=== PATIENT | female | born 1960 | race Caucasian/White ===

== ENCOUNTER → 2018-05-30 12:33 | Outpatient (CLI) | payer OTHER, SELFPAY ==
--- NOTE | 2018-05-30 12:41 | BI_ITS ---
MAMMOGRAPHY - BILATERAL SCREENING REASON FOR EXAM: Female, 57 years old. Routine annual screening examination. PERTINENT HISTORY: Mother with breast cancer. Remote left stereotactic breast biopsy. TECHNIQUE: Digital bilateral breast lizzie (3D mammographic acquisition) in the CC and MLO projections. 2-D mediolateral oblique (MLO) and craniocaudad (CC) views of both breasts were obtained. CAD: Full Field Digital Mammography with Computer Added Detection was performed. COMPARISON: Comparison is made with prior study dated November 19, 2014 and July 21, 2013. FINDINGS: Breast Composition: The breasts are almost entirely fatty. There are no dominant masses or suspicious calcifications. No other significant abnormalities are identified. There has been no significant change since the prior study. BI/SCREENING MAMM (CAD), BILAT IMPRESSION: Stable bilateral screening mammogram. Yearly follow-up mammogram recommended. (A) ASSESSMENT CATEGORY: BIRADS Category 1: Negative. A letter regarding these results will be sent to the patient by the facility within 30 days. Approximately 10% of breast cancers are not detected by mammography. A normal mammogram should not delay biopsy of a clinically suspicious abnormality. [id number] Electronically Signed: Robson Mullen MD at 14:11 EST Tel [phone], Service support ,
== END ==
PROVIDERS: Family Provider Family Medicine; PCP Family Medicine; Visit Provider Family Medicine
DX: Z12.31 Encounter for screening mammogram for malignant neoplasm of breast (principal); Z80.3 Family history of malignant neoplasm of breast
CPT/HCPCS: 77063; 77067

== ENCOUNTER → 2020-07-28 12:13 | Outpatient (CLI) | payer OTHER, SELFPAY ==
--- NOTE | 2020-07-28 12:14 | BI_ITS ---
MAMMOGRAPHY - BILATERAL SCREENING REASON FOR EXAM: Female, 59 years old. Routine annual screening examination. PERTINENT HISTORY: Mother with breast cancer. Remote left stereotactic breast biopsy. TECHNIQUE: Digital bilateral breast harper (3D mammographic acquisition) in the CC and MLO projections. 2-D mediolateral oblique (MLO) and craniocaudad (CC) views of both breasts were obtained. CAD: Full Field Digital Mammography with Computer Added Detection was performed. COMPARISON: Comparison is made with prior study dated 05/30/2018 and 11/19/2014. FINDINGS: Breast Composition: The breasts are almost entirely fatty. There are no dominant masses or suspicious calcifications. No other significant abnormalities are identified. There has been no significant change since the prior study. BI/SCRN MAMM (CAD)W/HARPER BILAT IMPRESSION: Stable bilateral screening mammogram. Yearly follow-up mammogram recommended. (A) ASSESSMENT CATEGORY: BIRADS Category 1: Negative. A letter regarding these results will be sent to the patient by the facility within 30 days. Approximately 10% of breast cancers are not detected by mammography. A normal mammogram should not delay biopsy of a clinically suspicious abnormality. [id number] Electronically Signed: Robson Mullen MD at 11:16 EDT , Service support ,
== END ==
PROVIDERS: PCP Family Medicine; Referring Provider Obstetrics & Gynecology Gynecology; Visit Provider Obstetrics & Gynecology Gynecology
DX: Z01.419 Encounter for gynecological examination (general) (routine) without abnormal findings (principal); Z12.31 Encounter for screening mammogram for malignant neoplasm of breast; Z80.3 Family history of malignant neoplasm of breast; Z80.41 Family history of malignant neoplasm of ovary
CPT/HCPCS: 77063; 77067

== ENCOUNTER 2022-02-09 12:50 | Day surgery (SDC) | payer OTHER, SELFPAY ==
[2022-02-09] VITALS (8 sets, daily range): BP systolic 87–117; BP diastolic 59–79; PULSE 68–78; RESP 16–18; TEMP 36.1–36.6; O2SAT 90–97; BMI 34.4
[2022-02-09] MEDS: Lactated Ringers 1,000 ML 15 ML IV (13:20)
[2022-02-09 14:05] LABS: Bedside Glucose 111 mg/dL (74-106)
[2022-02-09] MEDS: Cefazolin 2 GM in 0.9% Normal Saline 100 ML IV (15:01)
[2022-02-09] MEDS: Lidocaine 1% /Epi 1:100 (20ml) 20 ML Vial (15:13)
--- NOTE | 2022-02-09 15:44 | DCINST_ITS ---
Discharge Instructions Follow Up Care Test Results: Test results from this visit will be discussed in further detail at your follow- up appointment, if applicable. Discharge Plan Admission Primary Reason for Your Visit: Right long finger incision and drainage Attending Provider: William Jack Primary Care Provider: Teresa Villanueva Instructions Additional Instructions / Restrictions: Follow preprinted instructions from your surgeons office. Discharge Orders/Prescriptions Prescriptions: New oxycodone 5 mg tablet 5 mg PO Q6H PRN (Reason: pain) 7 Days Qty: 28 0RF Continued celecoxib 200 mg capsule 200 mg PO DAILY Label Comments: take 1 capsule by mouth once daily metformin 500 mg Tablet 1,000 mg PO BID doxycycline hyclate 100 mg capsule 100 mg PO DAILY Label Comments: take 1 capsule by mouth twice a day if needed for ROSACEA FLARES albuterol sulfate 1.25 mg/3 mL Solution For Nebulization 1.25 mg INHALATION Q4H sumatriptan succinate [Imitrex] 100 mg Tablet 100 mg PO Q2H PRN (Reason: Headache) Rx Instructions: do not exceed 2 doses per 24 hrs propranolol 60 mg tablet 60 mg PO BID Label Comments: take 1 tablet by mouth twice a day amitriptyline 50 mg tablet 50 mg PO QHS Label Comments: take 1 tablet by mouth at bedtime pantoprazole [Protonix] 40 mg Tablet,Delayed Release (Dr/Ec) 40 mg PO DAILY simvastatin 20 mg Tablet 20 mg PO DAILY lisinopril 5 mg Tablet 5 mg PO DAILY amoxicillin-pot clavulanate 875-125 mg tablet 1 tab PO BID Label Comments: take 1 tablet by mouth every 12 hours for 14 days escitalopram oxalate 10 mg tablet 10 mg PO DAILY Label Comments: take 1 tablet by mouth once daily omega-3 fatty acids-vitamin E 1,000 mg Capsule 2 cap PO DAILY cholecalciferol (vitamin D3) 1,250 mcg (50,000 unit) capsule 1,250 mcg PO FR Label Comments: take 1 capsule by mouth every week Jardiance 25 mg Tablet 25 mg PO DAILY Combivent Respimat 20-100 mcg/actuation Mist 1 puff INHALATION Q4H Referrals / Follow Up: Teresa Villanueva DO [Primary Care Provider] - Disposition Disposition (needs filled in before D/C Order can be placed): Home, Self Care
--- NOTE | 2022-02-09 15:44 | PCM.OPRPT ---
Report of Operation Date of Procedure: 02/09/22 Description of Surgical Findings:: Preoperative diagnosis: Right long finger paronychia with questionable developing felon Postoperative diagnosis: Right long finger paronychia Procedure: Incision and drainage right long finger paronychia Surgeon: William Jack DO Senior Sales Engineer: Desire Schmitz PA-C Anesthesia: MAC with digital ring block Anesthesiologist: Dr. Souza Estimated blood loss: 2 cc Intraoperative findings: Paronychia abscess with purulent fluid expressed following ulnar-sided paronychia incision. No purulence expressed from finger pulp. Specimen: Aerobic and anaerobic cultures Packing: Iodoform packing approximately 4 cm ulnar side paronychia Preoperative indications: This is a 61-year-old female past medical history significant for diabetes mellitus type 2 including other comorbidities who was seen in the outpatient setting as an urgent referral from her primary care physician for a paronychia. Patient reported a hangnail that had expressible pus approximately 1 month ago. This resolved with oral antibiotics and soaks. This returned approximately 1 week ago. She was seen at her primary care office. Bedside. Incision and drainage was attempted but was unsuccessful in resolving her pain and swelling. I saw the patient in the outpatient setting. She had findings consistent with a paronychia. There was some concern of a developing felon, however her finger pad was soft and compressible when I saw her in the office. There was surrounding erythema noted. I recommended formal incision and drainage in the operative suite. The risks, benefits, alternatives to procedure reviewed with the patient at length and she agreed to proceed. Risk included but were not limited to bleeding, flexion, loss of life or limb, need for additional surgery, persistent pain, persistent infection, neurovascular injury, loss of function, nail deformities, nonhealing wounds. Patient expressed understanding these risks and wished proceed with surgery. Informed consent obtained in the outpatient setting. Description of procedure: Patient was identified the preoperative order by name, medical record number, and date of . The operative extremity was marked. All questions are answered to the patient satisfaction. Informed percent was confirmed. She again did not have classic felon but there was significant palmar sided swelling noted. At time of her procedure, patient was brought the operative suite positioned supine a standard operating table. MAC anesthesia was induced. All bony prominences were well-padded. We spun the bed 90 degrees. No tourniquet was applied. Prior to prepping, I administered a digital nerve block with 10 cc 1% lidocaine with epinephrine 1: 200,000. We then prepped and draped the right upper extremity in normal, sterile orthopedic fashion. We performed timeout with all parties in attendance agreement the side, site, operation be performed. No concerns were voiced and would like to proceed with surgery. I first confirmed anesthesia with a Adson forceps. I then utilized a 15 blade to make a small incision along the ulnar paronychia. Purulence was immediately encountered and cultures were taken. I then opened the incision slightly wider encompassing the majority of the ulnar-sided paronychia. Hemostat was then placed within the abscess cavity and spread to confirm no residual loculations. I then passed the hemostat bluntly through the finger pad pulp. No purulence was expressed. There was significant reduction in the swelling of the fingertip immediately noted after the purulent fluid was drained from the eponychium. I then introduced a 18-gauge angiocatheter into the abscess cavity. Copious normal saline was irrigated through. There is no residual purulence noted. I then packed the abscess cavity with approximately 4 cm of iodoform packing. A bulky sterile dressing was then applied to the finger. She was safely awoken in the operative suite after anesthesia was reversed and she was transferred to her gurney and subsequently to PACU in stable condition. Postoperative plan: Patient be nonweightbearing to the operative digit. Patient will pull packing at home tomorrow and begin twice daily soap water soaks. Ice and elevation. Prescription for oxycodone provided. Continue doxycycline and amoxicillin as prescribed by her primary care physician pending cultures. We will follow cultures closely. Follow-up within 1 week for recheck with myself. Written instructions provided.
--- NOTE | 2022-02-09 16:01 | DCINST_ITS ---
Discharge Instructions Follow Up Care Test Results: Test results from this visit will be discussed in further detail at your follow- up appointment, if applicable. Discharge Plan Admission Primary Reason for Your Visit: Right long finger incision and drainage Attending Provider: William Jack Primary Care Provider: Teresa Villanueva Instructions Additional Instructions / Restrictions: Okay to remove dressing on postoperative day #1, 02/10/2022. Pull iodoform packing from the wound. After removing packing, performed 10-minute soap water soaks using a gentle dish soap. Okay to leave open to air if no significant drainage, otherwise cover with gauze dressing. Continue twice daily 10-minute soap water soaks until follow-up with Dr. Jack in 1 week. Continue home antibiotics. Okay to shower after pulling packing. No driving while taking narcotics. Discharge Orders/Prescriptions Prescriptions: New oxycodone 5 mg tablet 5 mg PO Q6H PRN (Reason: pain) 7 Days Qty: 28 0RF Continued celecoxib 200 mg capsule 200 mg PO DAILY Label Comments: take 1 capsule by mouth once daily metformin 500 mg Tablet 1,000 mg PO BID doxycycline hyclate 100 mg capsule 100 mg PO DAILY Label Comments: take 1 capsule by mouth twice a day if needed for ROSACEA FLARES albuterol sulfate 1.25 mg/3 mL Solution For Nebulization 1.25 mg INHALATION Q4H sumatriptan succinate [Imitrex] 100 mg Tablet 100 mg PO Q2H PRN (Reason: Headache) Rx Instructions: do not exceed 2 doses per 24 hrs propranolol 60 mg tablet 60 mg PO BID Label Comments: take 1 tablet by mouth twice a day amitriptyline 50 mg tablet 50 mg PO QHS Label Comments: take 1 tablet by mouth at bedtime pantoprazole [Protonix] 40 mg Tablet,Delayed Release (Dr/Ec) 40 mg PO DAILY simvastatin 20 mg Tablet 20 mg PO DAILY lisinopril 5 mg Tablet 5 mg PO DAILY amoxicillin-pot clavulanate 875-125 mg tablet 1 tab PO BID Label Comments: take 1 tablet by mouth every 12 hours for 14 days escitalopram oxalate 10 mg tablet 10 mg PO DAILY Label Comments: take 1 tablet by mouth once daily omega-3 fatty acids-vitamin E 1,000 mg Capsule 2 cap PO DAILY cholecalciferol (vitamin D3) 1,250 mcg (50,000 unit) capsule 1,250 mcg PO FR Label Comments: take 1 capsule by mouth every week Jardiance 25 mg Tablet 25 mg PO DAILY Combivent Respimat 20-100 mcg/actuation Mist 1 puff INHALATION Q4H Referrals / Follow Up: Teresa Villanueva DO [Primary Care Provider] - Disposition Disposition (needs filled in before D/C Order can be placed): Home, Self Care
== END 2022-02-09 16:48 | disposition home or self-care (01) ==
LOC: SDC 12:52 → AC 12:54
PROVIDERS: PCP Family Medicine; Referring Provider Student in an Organized Health Care Education/Training Program; Visit Provider Student in an Organized Health Care Education/Training Program
PROC: (CPT 10061; principal; 2022-02-09 14:25)
DX: L03.011 Cellulitis of right finger (principal); J44.9 Chronic obstructive pulmonary disease, unspecified; E11.9 Type 2 diabetes mellitus without complications; I10 Essential (primary) hypertension; E78.00 Pure hypercholesterolemia, unspecified; E66.8 Other obesity; K21.9 Gastro-esophageal reflux disease without esophagitis; M19.90 Unspecified osteoarthritis, unspecified site; F41.9 Anxiety disorder, unspecified; F17.210 Nicotine dependence, cigarettes, uncomplicated; Z68.35 Body mass index [BMI] 35.0-35.9, adult; Z71.3 Dietary counseling and surveillance; Z79.84 Long term (current) use of oral hypoglycemic drugs; Z79.899 Other long term (current) drug therapy
CPT/HCPCS: 10061; 00400; 82962; 87070; 87075; 87077; 87186; 87205; J7120; J2405

== ENCOUNTER 2022-04-05 09:38 | Day surgery (SDC) | payer OTHER, SELFPAY ==
--- NOTE | 2022-03-27 08:52 | EKG12_ITS ---
Test Reason : PRE OP Blood Pressure : / mmHG Vent. Rate : 074 BPM Atrial Rate : 074 BPM P-R Int : 146 ms QRS Dur : 086 ms QT Int : 398 ms P-R-T Axes : 068 084 077 degrees QTc Int : 441 ms Normal sinus rhythm Low voltage QRS Borderline ECG Confirmed by AIDEN SLAUGHTER, JAYLYN ([id number]), online editor ASHWIN SCHREIBER ([id number]) on 03/28/2022 8:51:31 AM Referred By: MOISES Confirmed By:JAYLYN WOLFE MD
[2022-03-27 09:30] LABS: Absolute Lymphocyte Count 3.17 X10^3/uL (0.83-4.51); Absolute Neutrophil Count 5.7 X10^3/uL (2.0-7.7); Eosinophil# 0.63 X10^3/uL; Eosinophils% 6.2 % (0-5); Hemoglobin 18.5 g/dL (12.0-15.0); Lymphocyte # 3.17 X10^3/ul (0.83-4.51); Lymphocyte % 31.4 % (19-41); Mean Corp Hgb Conc 33.3 g/dL (32-36); Mean Corpuscular Hgb 31.8 pg (27.0-32.0); Mean Corpuscular Volume 95.7 fL (81-99); Mean Platelet Vol. 9.2 fl (6.2-12.0); Monocyte# 0.48 X10^3/uL; Monocyte% 4.8 % (0-10); NRBC Flagged by Analyzer 0 % (0-5); Neutrophil # 5.67 X10^3/uL (2.7-7.7); Neutrophil % 56.2 % (47-70); Platelet Count 306 K/mm3 (150-450); RBC Distribution Width CV 13.9 % (11.6-14.6); RBC Distribution Width SD 48.6 fl (35.1-43.9); Red Blood Count 5.81 M/mm3 (4.2-5.4); White Blood Count 10.1 K/mm3 (4.4-11.0)
[2022-03-27 09:35] LABS: Hematocrit 55.6 % (37-47)
[2022-03-27 09:54] LABS: Hemoglobin A1c 6.7 % (3.8-5.6)
[2022-03-27 10:05] LABS: Anion Gap 6 (5-15); BUN 16 mg/dL (7-18); BUN/Creat Ratio 18.6 RATIO (10-20); Calcium,Total 9.9 mg/dL (8.5-10.1); Chloride 105 mmol/L (98-107); Creatinine, Serum 0.86 mg/dL (0.55-1.02); EST Glomerular Filtration Rate 72 mL/min (>60); Est Glom Filt Rate - Afr Amer 87 mL/min (>60); Glucose 152 mg/dL (74-106); Potassium 4.5 mmol/L (3.5-5.1); Sodium Level 136 mmol/L (136-145)
[2022-03-27 12:26] LABS: Pathologist Review Reviewed
[2022-04-05] VITALS (10 sets, daily range): BP systolic 84–111; BP diastolic 63–85; PULSE 73–84; RESP 16–22; TEMP 36.2–37.1; O2SAT 91–96; BMI 34.4
[2022-04-05 10:35] LABS: Bedside Glucose 143 mg/dL (74-106)
[2022-04-05] MEDS: Lactated Ringers 1,000 ML 15 ML IV ×2 (10:54→14:15)
[2022-04-05] MEDS: Ipratropium/Albuterol Sulfate 3 ML AMPUL.NEB INHALATION (11:11)
[2022-04-05] MEDS: Cefazolin 2 GM in 0.9% Normal Saline 100 ML IV (11:45)
[2022-04-05] MEDS: Epinephrine (1 mg/ml) 1 MG/ML VIAL (12:10)
[2022-04-05] MEDS: Bupivacaine 0.25% 30 ML Vial ×2 (14:00)
[2022-04-05 15:05] LABS: Bedside Glucose 177 mg/dL (74-106)
[2022-04-05] MEDS: oxyCODONE 5 MG Tablet 10 MG PO (15:30)
--- NOTE | 2022-04-05 16:43 | DCINST_ITS ---
Discharge Instructions Follow Up Care Test Results: Test results from this visit will be discussed in further detail at your follow- up appointment, if applicable. Discharge Plan Admission Primary Reason for Your Visit: Right shoulder surgery Attending Provider: William Jack Primary Care Provider: Teresa Villanueva Instructions Additional Instructions / Restrictions: Follow preprinted instructions from your surgeons office. Discharge Orders/Prescriptions Prescriptions: No Action celecoxib 200 mg capsule 200 mg PO DAILY Label Comments: take 1 capsule by mouth once daily metformin 500 mg Tablet 1,000 mg PO BID doxycycline hyclate 100 mg capsule 100 mg PO PRN PRN (Reason: ROSECA) Label Comments: take 1 capsule by mouth twice a day if needed for ROSACEA FLARES albuterol sulfate 1.25 mg/3 mL Solution For Nebulization 1.25 mg INHALATION PRN PRN (Reason: SOB) sumatriptan succinate [Imitrex] 100 mg Tablet 100 mg PO Q2H PRN (Reason: Headache) Rx Instructions: do not exceed 2 doses per 24 hrs propranolol 60 mg tablet 60 mg PO BID Label Comments: take 1 tablet by mouth twice a day amitriptyline 50 mg tablet 50 mg PO QHS Label Comments: take 1 tablet by mouth at bedtime pantoprazole [Protonix] 40 mg Tablet,Delayed Release (Dr/Ec) 40 mg PO DAILY simvastatin 20 mg Tablet 20 mg PO DAILY lisinopril 5 mg Tablet 5 mg PO DAILY escitalopram oxalate 10 mg tablet 10 mg PO DAILY Label Comments: take 1 tablet by mouth once daily omega-3 fatty acids-vitamin E 1,000 mg Capsule 2 cap PO DAILY cholecalciferol (vitamin D3) 1,250 mcg (50,000 unit) capsule 1,250 mcg PO FR Label Comments: take 1 capsule by mouth every week Jardiance 25 mg Tablet 25 mg PO DAILY Combivent Respimat 20-100 mcg/actuation Mist 1 puff INHALATION PRN PRN (Reason: SOB) Referrals / Follow Up: Teresa Villanueva DO [Primary Care Provider] - William Jack DO [Med Staff - Active Staff] - Within 2 Weeks Disposition Disposition (needs filled in before D/C Order can be placed): Home, Self Care
--- NOTE | 2022-04-05 17:08 | OP.PCM_ITS ---
Report of Operation Date of Procedure: 04/05/22 Description of Surgical Findings:: Preoperative diagnosis: 1. Right shoulder rotator cuff tear 2. 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 Right shoulder rotator cuff tear 2. 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 Diagnostic and operative right shoulder arthroscopy with rotator cuff repair 2. Right shoulder mini open distal clavicle excision 3. Right shoulder arthroscopic debridement of labrum, capsular synovitis, subacromial bursitis 4. Right shoulder arthroscopic ganglion cyst excision Primary Surgeon: William Jack DO Automatic Grinder Operator: Desire Schmitz PA-C Anesthesia: General endotracheal Anesthesiologist: Omero De La Rosa MD Complications: None apparent Specimen: None Estimated blood loss: 50 cc IV fluids: 1 L crystalloid Urine output: None Packing/drains: None Implants: Arthrex 5.5 mm bio composite swivel lock anchor Intraoperative findings: Full-thickness tear of the supraspinatus leading edge, subacromial bursitis, 2 x 2 x 2 cm ganglion cyst arising from the distal clavicle, severe AC joint arthrosis, glenohumeral synovitis, grade 4 humeral head chondromalacia Preoperative indications: This is a 61-year-old female seen in outpatient setting for right shoulder pain. She had a palpable cyst along her AC joint. She saw a general surgeon in approximately 6 months ago who attempted to excise the cyst but was unsuccessful. I obtained an MRI which demonstrated the cyst was arising from the distal clavicle. We also found a leading edge supraspinatus tendon tear. She did have significant weakness in the supraspinat us. I recommended surgical intervention in the form of right shoulder diagnostic and operative arthroscopy with rotator cuff repair, distal clavicle excision and excision of the ganglion cyst. I reviewed the risks, benefits, alternatives to the procedure. Risks included but were not limited to bleeding, infection, loss of life or limb, nonhealing tendon, persistent pain, persistent weakness, stiffness, need for prolonged immobilization, prolonged therapy, DVT or PE, risk of anesthesia, neurovascular injury, need for additional surgery. Patient expressed understanding these risks and wished to proceed with surgery. Description of procedure: Patient was identified in the preoperative holding area by name, medical record number, and date of . Informed consent was confirmed with the patient. The operative extremity was marked with a surgical marker. All questions were answered to the patient's satisfaction. At time of her procedure, patient was brought to the operative suite and positioned supine a standard operating table with a beachchair attachment. All bony prominences were well-padded. General anesthesia was induced and endotracheal tube placed. After the tube was secured, we elevated the head of the bed to position the patient into the beachchair position. A pillow was placed on the patient's legs. All bony prominences were well-padded. The nonoperative extremity was placed in a well arm rutherford. A strap was placed across the patient's torso and the butterfly attachment of the bed was removed to gain access to the posterior scapula. We then spun the bed approximately 45 degrees. We then prepped and draped the operative upper extremity in a normal, sterile orthopedic fashion. We performed a timeout with all parties in attendance in agreement with the side, site, and operation be performed. No concerns were voiced and we elected to proceed. 2 g Ancef was administered prior to the incision by anesthesia staff. I first outlined the bony landmarks of the shoulder. I established a standard posterior portal with an 11 blade scalpel. Blunt tipped trocar in cannula was inserted into the glenohumeral joint. The joint was insufflated with normal saline solution with epinephrine in the first 2 bags. Trocar was removed and diagnostic arthroscopy was commenced. There was significant synovitis and degenerative tearing of both the supraspinatus and labrum easily identifiable initially. I established a standard anterior portal with the assistance of a spinal needle under direct visualization just superior to the upper border of the subscapularis. Probing of the subscapularis as well as a posterior lever test revealed that the subscapularis appeared to be intact. The long of the biceps tendon was pristine. The biceps anchor was stable. There was degenerative tearing of the glenoid labrum which appeared to be impinging in the glenohumeral joint. This was debrided with a radial resector. The undersurface of the supraspinatus tear appeared to be full-thickness but I did tagged this with a #0 PDS suture for bursal side examination. Grade IV chondromalacia was noted of the humeral head without unstable flaps. There is extensive synovitis of the glenohumeral capsule which was debrided with a radiofrequency ablator and shaver. I then withdrew the arthroscope and cannula, reintroduced the blunt tipped trocar to the cannula and inserted into the subacromial space. I established a standard lateral portal with the assistance of a spinal needle and subsequent 11 blade scalpel. The radial resector was then introduced through the lateral portal and a subacromial bursectomy was performed as there was extensive bursitis in the subacromial space. There is a cystic structure identified which was debrided with the radial resector. The undersurface of the acromion was skeletonized with the radiofrequency ablator as well as peeling off the undersurface and attachment of the coracoacromial ligament. The acromion was without significant spurring. The acromioclavicular joint capsule was then identified and the inferior portion was released with the radiofrequency ablator. I then turned our attention to the supraspinatus tear. Identified the tagging suture and upon probing of the supraspinatus identified a full-thickness tear measuring approximately 1 cm in anterior to posterior dimensions. I freed the underlying capsular tissue. I then proceeded with a simple inverted mattress suture configuration with a fiber tape suture utilizing a antegrade suture passer. Suture ends were then placed through the eyelet of a 5.5 mm bio composite swivel lock anchor. I cleared the surface of the footprint and decorticated with the bone cutting radial resector. I then tensioned the sutures and placed the anchor through the airplane pilot commercial hole established with the vendor supplied punch. The rotator cuff was retensioned well without significant dogears. Sutures were cut flush with the anchor. I then turned my attention to the distal clavicle. Due to question of remaining cyst, I elected to proceed with a mini open distal clavicle excision. A longitudinal incision was made over top of the AC joint. Full-thickness skin flaps were developed down to the level of the superior joint capsule. I elevated the joint capsule with Bovie cautery. Approximately 8 mm of the distal clavicle was then excised with a 5.5 mm arthroscopic bur and rongeur. I then closed the superior capsule with 0 Vicryl suture in [id number] fashion. No remaining cyst material was identified. The subacromial space was then thoroug hly lavaged. Portal sites were closed in interrupted [id number] fashion with 4-0 nylon suture. I closed the distal clavicle excision in layers with 0 Vicryl in the deep fatty layer in [id number] fashion. Dermis was reapproximated buried 2-0 Vicryl suture. Skin was finally reapproximated with a horizontal mattress 4-0 nylon suture. I anesthetized the incisions, subacromial space and glenohumeral joint with 60 cc total of 0.25% plain bupivacaine. Sterile compression dressing was applied. Patient was then placed in UltraSling. She was able to be safely extubated in the operative suite. He was transferred to his gurney and subsequently to PACU in stable condition. Need for skilled orthodontic assistant: Desire Schmitz PA-C was critical to the outcome of the case. During the course of the procedure the physician orthodontic assistant played a vital role. Her intimate knowledge of my steps in the procedure aided in safe and expedient completion of the procedure. The PA played a vital role in pos itioning particularly in obtaining the appropriate positioning. The PA was also vital in the retraction of soft tissues during the exposure and protecting vital structures. The PA was also vital and obtaining tendon reduction and assisting with hardware placement. She also played a vital role in closure and sling application with my direct supervision. Postoperative plan: Patient will be nonweightbearing to the operative extremity. She should maintain his sling at all times removing only to shower. She may shower on postoperative day #2 if no significant drainage. She will follow up in a pproximately 2 weeks for suture removal. We will plan to initiate twice daily 81 mg aspirin for DVT prophylaxis starting tomorrow. Prescription for oxycodone was provided as an outpatient.
== END 2022-04-05 16:34 | disposition home or self-care (01) ==
LOC: SDC 09:40 → AC 09:41
PROVIDERS: PCP Family Medicine; Visit Provider Student in an Organized Health Care Education/Training Program
PROC: (CPT 29827; principal; 2022-04-05 11:10)
DX: M19.011 Primary osteoarthritis, right shoulder (principal); J44.9 Chronic obstructive pulmonary disease, unspecified; E11.9 Type 2 diabetes mellitus without complications; M75.101 Unspecified rotator cuff tear or rupture of right shoulder, not specified as traumatic; M75.121 Complete rotator cuff tear or rupture of right shoulder, not specified as traumatic; M67.40 Ganglion, unspecified site; F17.210 Nicotine dependence, cigarettes, uncomplicated; E78.00 Pure hypercholesterolemia, unspecified; K57.30 Diverticulosis of large intestine without perforation or abscess without bleeding
CPT/HCPCS: 23410; 23120; 29806; 29822; 01610; 36415; 80048; 82962; 83036; 85025; 87081; 93005; 94640; 99251; C1776; J7120; G0463; J2405

== ENCOUNTER → 2022-08-02 | Outpatient (CLI) | payer OTHER, SELFPAY ==
--- NOTE | 2022-08-02 12:52 | BI_ITS ---
MAMMOGRAPHY - BILATERAL SCREENING 3-D TOMOSYNTHESIS REASON FOR EXAM: Female, 61 years old. Routine screening PERTINENT HISTORY: Mother with breast cancer.. TECHNIQUE: 2-D mammograms and 3-D Tomosynthesis of the breast (s) were performed. CAD was performed. COMPARISON: 05/30/2018 FINDINGS: The breast composition is almost entirely fat. Scattered benign calcifications are seen. No dense spiculated masses or suspicious microcalcifications are identified. No architectural distortion is identified. There is no skin thickening or retraction. There has been no significant change since the prior study. BI/SCRN MAMM (CAD)W/HARPER BILAT IMPRESSION: No mammographic signs of malignancy. Routine yearly mammograms recommended. ASSESSMENT CATEGORY: BIRADS Category 1: Negative. A letter regarding these results will be sent to the patient by the facility within 30 days. FOLLOW UP RECOMMENDATION: Yearly follow up mammogram recommended. (A) Approximately 10% of breast cancers are not detected by mammography. A normal mammogram should not delay biopsy of a clinically suspicious abnormality. Electronically Signed: Clayton Hogue MD at 14:04 EDT ,
== END | disposition home or self-care (01) ==
LOC: OPBI 12:50
PROVIDERS: PCP Family Medicine; Referring Provider Family Medicine; Visit Provider Family Medicine
DX: Z12.31 Encounter for screening mammogram for malignant neoplasm of breast (principal)
CPT/HCPCS: 77063; 77067

== ENCOUNTER 2023-07-12 08:06 | Day surgery (SDC) | payer OTHER, SELFPAY ==
[2023-07-04 12:32] LABS: Hemoglobin 18.5 g/dL (12.0-15.0); Mean Corp Hgb Conc 32.2 g/dL (32-36); Mean Corpuscular Hgb 30.6 pg (27.0-32.0); Mean Platelet Vol. 10.3 fl (6.2-12.0); Platelet Count 295 K/mm3 (150-450); RBC Distribution Width CV 13.9 % (11.6-14.6); RBC Distribution Width SD 48.2 fl (35.1-43.9); Red Blood Count 6.05 M/mm3 (4.2-5.4); White Blood Count 10.2 K/mm3 (4.4-11.0)
[2023-07-04 12:46] LABS: Hematocrit 57.5 % (37-47)
[2023-07-04 12:49] LABS: Anion Gap 7 (5-15); BUN 15 mg/dL (7-18); BUN/Creat Ratio 18.9 RATIO (10-20); Calcium,Total 9.3 mg/dL (8.5-10.1); Chloride 109 mmol/L (98-107); Creatinine, Serum 0.79 mg/dL (0.55-1.02); EST Glomerular Filtration Rate 78 mL/min (>60); Est Glom Filt Rate - Afr Amer 94 mL/min (>60); Glucose 124 mg/dL (74-106); Potassium 4.3 mmol/L (3.5-5.1); Sodium Level 140 mmol/L (136-145)
[2023-07-05 12:57] LABS: Pathologist Review Reviewed
[2023-07-12] VITALS (8 sets, daily range): BP systolic 98–127; BP diastolic 77–93; PULSE 80–110; RESP 16–18; TEMP 36.3–37.1; O2SAT 94–97; BMI 35.8
--- OUTSIDE RECORDS SUMMARY | 2023-07-12 08:28 | XMS RPT_ITS | CCD ---
Author Name Unknown Address [address] [facility] [facility] [address] [place] [address] Organization [facility] Care Team Providers Care Assistant Store Leader Name Role Phone JASON SANABRIA DO Primary Care Physician [phone] DANIELE DO, JASON Attending Unavailable DANIELE DO, JASON Primary Care Unavailable DANIELE DO, JASON Attending Unavailable DANIELE DO, JASON Primary Care Unavailable DANIELE DO, JASON Attending Unavailable DANIELE DO, JASON Primary Care Unavailable DANIELE DO, JASON Attending Unavailable DANIELE DO, JASON Primary Care Unavailable DANIELE DO, JASON Attending Unavailable DANIELE DO, JASON Primary Care Unavailable DANIELE DO, JASON Attending Unavailable DANIELE DO, JASON Primary Care Unavailable DANIELE DO, JASON Attending Unavailable DANIELE DO, JASON Primary Care Unavailable DANIELE DO, JASON Attending Unavailable DANIELE DO, JASON Primary Care Unavailable DANIELE DO, JASON Attending Unavailable DANIELE DO, JASON Primary Care Unavailable TOMAS SURESH MD Attending Unavailable DANIELE DO, JASON Primary Care Unavailable DANIELE DO, JASON Attending Unavailable DANIELE DO, JASON Primary Care Unavailable KRISTIE KOCH Attending Unavailabl e DANIELE DO, JASON Primary Care Unavailable Allergies Allergy Classification Reported Allergen(s) Allergy Type Date of Onset Reaction(s) Facility (20 sources) Erythromycin; Translations: [erythromycin] Drug Allergy Chest pain [facility] (20 sources) Macrolides (Antibiotic); Translations: [macrolide antibiotics] Drug allergy [facility] (20 sources) Nitroglycerin; Translations: [nitroglycerin] Drug Allergy Headache [facility] Medications Current Medications Medication Drug Class(es) Dates Sig (Normalized) Sig (Original) 0.5 ML semaglutide 0.5 MG/ML Auto-Injector (2 sources) Start: 01-31-2022 inject 1 dose by subcutaneous injection every week semaglutide 0.25 mg/0.5 mL (0.25 mg dose) subcutaneous solution Dose : 0.25 mg =, Subcutaneous, qWeek, in the abdomen, thigh, or upper arm Corrected RX, # 6 mL, 3 Refill(s), Diabetes mellitus Start Date: 01/31/22 Status: Ordered albuterol 0.83 mg/ml inhalation solution (20 sources) beta2-Adrenergic Agonist Start: 12-27-2022 take 1 dose by inhalation every six hours albuterol 2.5 mg/3 mL (0.083%) inhalation solution Dose : 2.5 mg = 3 mL, Inhalation, q6hr, # 60 EA, 2 Refill(s), Pharmacy: [facility] #[id number], COPD - Chronic obstructive pulmonary disease, 175, cm, 12/27/22 8:35:00 EDT, Height, kg, 12/27/22 8:35:00 EDT, Dosing Weight Start Date: 12/27/22 Status: Ordered Completed/Discontinued Medications Medication Drug Class(es) Dates Sig (Normalized) Sig (Original) 0.5 ml dulaglutide 1.5 mg/ml auto-injector (1 source) GLP-1 Receptor Agonist Start: 12-27-2022 inject 0.5 mL by subcutaneous injection every week Trulicity Pen 0.75 mg/0.5 mL subcutaneous solution Dose : 0.75 mg = 0.5 mL, Subcutaneous, qWeek, rotate injection sites, # 2 mL, 1 Refill(s), 0.5 mL/Pen, Pharmacy: [facility] #[id number], Diabetes mellitus, 175, cm, 12/27/22 8:35:00 EDT, Height, kg, 12/27/22 8:35:00 EDT, Dosing Weight Start Date: 12/27/22 Status: Ordered metroNIDAZOLE 0.01 mg/mg topical gel (20 sources) Nitroimidazole Antimicrobial Start: 07-26-2022 End: 11-23-2022 MetroGel 1% topical gel Apply 1 maando, Topical, qDay, apply a thin film to affected area after washing when she has a rosacea flare up, # 60 gram(s), 3 Refill(s), Pharmacy: [facility] #[id number], Gel, 174, cm, 07/26/22 10:27:00 EST, Height, 108.3, kg, 07/26/22 10:27:00 EST, Dosing Weight Start Date: 07/26/22 Stop Date: 11/23/22 Status: Ordered Problems Active Problems Problem Classification Problem Date Documented Date Episodic/Chronic Anxiety disorders (20 sources) Anxiety 12-21-2013 Chronic Chronic obstructive pulmonary disease and bronchiectasis (20 sources) Chronic obstructive lung disease 12-24-2019 Chronic Diabetes mellitus with complications (6 sources) Hyperglycemia due to type 2 diabetes mellitus; Translations: [Type 2 diabetes mellitus with hyperglycemia] 01-25-2023 Chronic Diabetes mellitus without complication (20 sources) Diabetes mellitus; Translations: [Type 1 diabetes mellitus without complication] Onset: 3 12-26-2018 Chronic Disorders of lipid metabolism (20 sources) Hypercholesterolemia 12-26-2018 Chronic Diverticulosis and diverticulitis (20 sources) Diverticulitis 07-20-2020 Chronic Esophageal disorders (20 sources) Gastroesophageal reflux disease without esophagitis 06-27-2019 Chronic Essential hypertension (20 sources) Benign essential hypertension; Translations: [Essential hypertension] Onset: 2 12-19-2018 Chronic Fever of unknown origin (15 sources) Fever 03-09-2021 Episodic Genitourinary symptoms and ill-defined conditions (6 sources) Incontinence; Translations: [Mixed incontinence] Onset: 3 10-24-2022 Chronic Headache; including migraine (20 sources) Migraine; Translations: [Migraine, unspecified, not intractable, without status migrainosus] Onset: 2 12-21-2013 Chronic Mood disorders (20 sources) Depressive disorder; Translations: [Recurrent major depressive episodes, moderate ] 07-20-2020 Chronic Mycoses (20 sources) Candidiasis 06-25-2020 Episodic Nausea and vomiting (20 sources) Nausea and vomiting 03-09-2021 Episodic Neoplasms of unspecified nature or uncertain behavior (20 sources) Neoplasm of soft tissue 12-24-2020 Episodic Nutritional deficiencies (14 sources) Vitamin D deficiency 07-19-2021 Chronic Osteoarthritis (1 source) Localized, primary osteoarthritis of the shoulder region; Translations: [Primary osteoarthritis, right shoulder] Chronic Other aftercare (20 sources) Surgical follow-up 02-09-2021 Episodic Other aftercare (1 source) Drug monitoring done; Translations: [Encounter for therapeutic drug level monitoring] Episodic Other aftercare (1 source) Long-term current use of drug therapy; Translations: [Other chcf (current) drug therapy] Episodic Other connective tissue disease (18 sources) Ganglion cyst 06-01-2021 Episodic Other diseases of kidney and ureters (20 sources) Cyst of kidney 12-19-2018 Episodic Other inflammatory condition of skin (20 sources) Rosacea 12-19-2018 Chronic Other nervous system disorders (1 source) Postoperative pain ; Translations: [Other acute postprocedural pain] Onset: 1 Episodic Other non-traumatic joint disorders (1 source) Joint pain; Translations: [Pain in unspecified joint] Onset: 2 Episodic Other non-traumatic joint disorders (11 sources) Knee pain 12-07-2021 Episodic Other non-traumatic joint disorders (8 sources) Shoulder pain 03-01-2022 Episodic Other nutritional; endocrine; and metabolic disorders (11 sources) Body mass index 30+ - obesity 07-26-2022 Chronic Other nutritional; endocrine; and metabolic disorders (7 sources) Morbid obesity 07-26-2022 Chronic Other skin disorders (20 sources) Subcutaneous mass of neck 05-04-2021 Episod ic Other upper respiratory disease (12 sources) Seasonal allergy 2021 Chronic Residual codes; unclassified (20 sources) Obstructive sleep apnea syndrome 12-19-2018 Chronic Residual codes; unclassified (20 sources) Edema of the upper extremity 03-28-2019 Episodic Residual codes; unclassified (20 sources) Family history of breast cancer 07-21-2020 Episodic Residual codes; unclassified (20 sources) Family history of malignant neoplasm of ovary 07-21-2020 Episodic Residual codes; unclassified (20 sources) Requires vaccination 03-28-2019 Episodic Residual codes; unclassified (20 sources) Needs influenza immunization 04-19-2021 Episodic Residual codes; unclassified (10 sources) Influenza-like symptoms 06-17-2021 Episodic Residual codes; unclassified (1 source) Past history of procedure; Translations: [Other specified postprocedural states] Episodic Residual codes; unclassified (3 sources) Screening due 01-26-2023 Episodic Spondylosis; intervertebral disc disorders; other back problems (20 sources) Backache; Translations: [Low back pain] 12-21-2013 Episodic Sprains and strains (1 source) Strain of rotator cuff of shoulder; Translations: [Strain of muscle(s) and tendon(s) of the rotator cuff of right shoulder, subsequent encounter] Episodic Unclassified (20 sources) Emphysema 12-19-2018 Unclassified (20 sources) Patient encounter status 03-24-2020 Unclassified (20 sources) Sebaceous cyst of skin 01-19-2021 Unclassified (20 sources) Suspected disease caused by 2019-nCoV 03-09-2021 Unclassified (14 sources) Vaccination needed 07-19-2021 Unclassified (7 sources) Influenza vaccination status 07-26-2022 Past or Other Problems Problem Classification Problem Date Documented Date Episodic/Chronic Genitourinary symptoms and ill-defined conditions (2 sources) Unspecified symptoms and signs involving the genitourinary system; Translations: [Unspecified symptoms and signs involving the genitourinary system] Onset: 07-26-2022 Episodic Other screening for suspected conditions (not mental disorders or infectious disease) (5 sources) Thyroid function tests abnormal; Translations: [Encounter for other screening for malignant neoplasm of breast] Onset: 10-24-2022 01-25-2023 Episodic Skin and subcutaneous tissue infections (14 sources) Onychia of finger; Translations: [Cutaneous abscess, unspecified] Onset: 02-13-2023 2021 Episodic Results Test Name Value Interpretation Reference Range Facil ity Vital Signs Date Time Vital Sign Value Performing Clinician Donna pete 01-26-2023 09:16-0400 Body height 174 cm JASON SANABRIA DO [facility] 01-26-2023 09:16-0400 Body weight 35.8 kg/m2 JASON SANABRIA DO [facility] 01-26-2023 09:16-0400 Body weight 108.4 kg JASON SANABRIA DO [facility] 12-06-2021 00:20-0400 Heart rate 88 /min JORGE INGRAM MD [facility] 12-06-2021 00:20-0400 Respiratory rate 18 /min JORGE INGRAM MD [facility] 12-06-2021 00:04-0400 Reason For Taking VItal Signs JORGE INGRAM MD [facility] 12-05-2021 22:44-0400 Body height 175.3 cm JORGE INGRAM MD [facility] 12-05-2021 22:44-0400 Body temperature 98.06 [degF] JORGE INGRAM MD [facility] 12-05-2021 22:44-0400 Body weight 104.5 kg JORGE INGRAM MD [facility] 12-05-2021 22:44-0400 Diastolic blood pressure 96 mm[Hg] JORGE INGRAM MD [facility] 12-05-2021 22:44-0400 Heart rate 93 /min JORGE INGRAM MD [facility] 12-05-2021 22:44-0400 Respiratory rate 18 /min JORGE INGRAM MD [facility] 12-05-2021 22:44-0400 Systolic blood pressure 147 mm[Hg] JORGE INGRAM MD [facility] 05-11-2021 11:36-0500 Diastolic Blood Pressure NBP [address] ISIDRO BRUCE MD [facility] 05-11-2021 11:36-0500 Heart rate 75 /min DR ISIDRO BRUCE MD [facility] 05-11-2021 11:36-0500 Respiratory rate 18 /min DR ISIDRO BRUCE MD [facility] 05-11-2021 11:36-0500 Systolic Blood Pressure NBP [address] ISIDRO BRUCE MD [facility] 05-11-2021 11:21-0500 Body temperature 97.52 [degF] DR ISIDRO BRUCE MD [facility] 05-11-2021 11:21-0500 Diastolic Blood Pressure NBP [address] ISIDRO BRUCE MD [facility] 05-11-2021 11:21-0500 Heart rate 86 /min DR ISIDRO BRUCE MD [facility] 05-11-2021 11:21-0500 Respiratory rate 18 /min DR ISIDRO BRUCE MD [facility] 05-11-2021 11:21-0500 Systolic Blood Pressure NBP [address] ISIDRO BRUCE MD [facility] 05-11-2021 11:20-0500 Respiratory rate 0 /min DR ISIDRO BRUCE MD [facility] 05-11-2021 11:15-0500 Diastolic Blood Pressure NBP [address] ISIDRO BRUCE MD [facility] 05-11-2021 11:15-0500 Heart rate 75 /min DR ISIDRO BRUCE MD [facility] 05-11-2021 11:15-0500 Systolic Blood Pressure NBP [address] ISIDRO BRUCE MD [facility] 05-11-2021 09:42-0500 Body height 175.[address] ISIDRO BRUCE MD [facility] 05-11-2021 09:42-0500 Body temperature 95.54 [degF] DR ISIDRO BRUCE MD [facility] 05-11-2021 09:42-0500 Body weight 106.[address] ISIDRO BRUCE MD [facility] 05-11-2021 09:42-0500 Heart rate 84 /min DR ISIDRO BRUCE MD [facility] 05-10-2021 10:38-0500 Body height 175.[address] CONRAD SILVERIO MD [facility] 05-10-2021 10:38-0500 Body weight 106.[address] CONRAD SILVERIO MD [facility] 05-10-2021 10:38-0500 Body weight 34.75 kg/m2 DR CONRAD SILVERIO MD [facility] 05-10-2021 10:38-0500 diastolic 84 mm[Hg] DR CONRAD SILVERIO MD [facility] 05-10-2021 10:38-0500 Heart rate 73 /min DR CONRAD SILVERIO MD [facility] 05-10-2021 10:38-0500 Respiratory rate 20 /min DR CONRAD SILVERIO MD [facility] 05-10-2021 10:38-0500 systolic 114 mm[Hg] DR CONRAD SILVERIO MD [facility] Encounters Encounter Date Encounter Type Care Provider Facility Start: 07-05-2023 End: 07-06-2023 ambulatory JASON SANABRIA DO Facility:B Start: 03-26-2023 ambulatory JASON SANABRIA DO Facil ity:B Start: 02-26-2023 End: 07-04-2023 ambulatory JASON SANABRIA DO Facility:[facility] Start: 02-26-2023 End: 07-04-2023 OTHER THERAPY JASON SANABRIA DO [facility] Start: 02-13-2023 End: 02-18-2023 ambulatory KRISTIE PETER APRN-[employer] Facility:B Start: 02-12-2023 End: 02-13-2023 ambulatory JASON SANABRIA DO Facility:[facility] Start: 02-12-2023 End: 02-12-2023 Patient encounter procedure JASON SANABRIA DO [facility] Start: 01-26-2023 End: 01-27-2023 ambulatory JASON ARMIJOY Facility:B Start: 01-26-2023 End: 01-26-2023 Patient encounter procedure JASON Bob DANIELE DO [facility] Start: 01-25-2023 End: 01-26-2023 ambulatory JASON SANABRIA Facility:B Start: 01-11-2023 End: 01-12-2023 ambulatory JASON SANABRIA DO Facility:B Start: 01-11-2023 End: 01-11-2023 Patient encounter procedure JASON M DANIELE DO [facility] Start: 10-24-2022 End: 10-29-2022 ambulatory TOMAS SURESH MD Facility:B Start: 10-24-2022 End: 10-29-2022 Encounter for gynecological examination (general) (routine) without abnormal findings TOMAS SURESH MD Facility:B Start: 07-26-2022 End: 07-31-2022 ambulatory JASON SANABRIA DO Facility:B Start: 07-26-2022 End: 07-30-2022 Outreach Lab JASON SANABRIA DO [facility] Start: 04-20-2022 End: 08-08-2022 Physical therapy management JARET TOMLINSON PA-C [facility] Start: 03-01-2022 End: 03-01-2022 Patient encounter procedure JASON SANABRIA DO [facility] Start: 02-02-2022 End: 02-02-2022 Patient encounter procedure CONRAD DE LEON DO [facility] Start: 01-19-2022 End: 01-19-2022 Patient encounter procedure ASHUTOSH CHARLES PA-C [facility] Start: 12-26-2021 End: 12-26-2021 Patient encounter procedure JASON SANABRIA DO [facility] Start: 12-05-2021 End: 12-06-2021 Emergency department patient visit JORGE INGRAM MD [facility] Start: 09-05-2021 End: 09-09-2021 Outreach Lab KRISTIE PETER TRY ON BASTER-[employer] [facility] Start: 07-29-2021 End: 08-02-2021 Outreach Lab TOMAS SURESH MD [facility] Start: 07-14-2021 End: 07-14-2021 Patient encounter procedure JASON SANABRIA DO [facility] Start: 06-17-2021 End: 06-17-2021 Patient encounter procedure GUERA ORTIZ TRY ON [employer] [facility] Start: 05-11-2021 End: 05-11-[address] ISIDRO BRUCE MD [facility] Start: 05-10-2021 End: 05-10-[address] CONRAD SILVERIO MD [facility] Start: 04-29-2021 End: 04-29-2021 Patient encounter procedure VIN DAVIS TRY ON [employer] [facility] Start: 04-28-2021 End: 04-28-2021 Patient encounter procedure VIN DAVIS TRY ON [employer] [facility] Start: 03-09-2021 End: 03-13-2021 Outreach Lab JASON SANABRIA DO [facility] Start: 08-09-2020 End: 07-05-2021 Patient encounter procedure JASON SANABRIA DO [facility] Procedures Date Procedure Procedure Detail Performing Clinician Start: 06-21-2021 Finger structure (cassandra dy structure) JASON SANABRIA DO Immunizations Immunization Date Immunization Notes Care Provider Fa [facility] 05-02-2023 influenza, injectabl e, quadrivalent, contains preservative; Translations: [Fluarix PF Quadrivalent ] JASON SANABRIA DO [facility] 03-01-2022 influenza, injectabl e, quadrivalent, contains preservative; Translations: [Fluarix PF Quadrivalent ] JASON SANABRIA DO [facility] 07-19-2021 COVID-19, mRNA, LNP- S, PF, 100 mcg or 50 mcg dose; Translations: [Moderna COVID-19 Vaccine] TOMAS SURESH MD [facility] 04-19-2021 influenza, injectabl e, quadrivalent, contains preservative; Translations: [Fluarix PF Quadrivalent ] VIN DAVIS TRY ON [employer] [facility] 03-18-2021 zoster vaccine recombinant VIN DAVIS TRY ON [employer] [facility] 12-31-2020 zoster vaccine recombinant VIN DAVIS TRY ON [employer] [facility] 09-18-2020 SARS-CoV-2 (COVID-19 ) mRNA-1273 vaccine JASON SANABRIA DO [facility] 08-21-2020 SARS-CoV-2 (COVID-19 ) mRNA-1273 vaccine JASON SANABRIA DO [facility] 03-24-2020 influenza, injectabl e, quadrivalent, preservative free; Translations: [Fluarix PF Quadrivalent ] JASON SANABRIA DO [facility] 03-28-2019 influenza, injectabl e, quadrivalent, preservative free; Translations: [Fluarix PF Quadrivalent ] JASON SANABRIA DO [facility] 02-26-2018 influenza virus vacc ine, unspecified formulation JASON SANABRIA DO [facility] 02-12-2018 pneumococcal polysaccharide vaccine, 23 valent JASON SANABRIA DO [facility] 08-13-2017 tetanus toxoid, redu oscar diphtheria toxoid, and acellular pertussis vaccine, adsorbed JASON SANABRIA DO [facility] 02-12-2017 influenza virus vacc ine, unspecified formulation JASON SANABRIA DO [facility] 02-12-2017 pneumococcal polysaccharide vaccine, 23 valent JASON SANABRIA DO [facility] 02-07-2016 influenza virus vacc ine, unspecified formulation JASON SANABRIA DO [facility] 07-13-2015 influenza virus vacc ine, unspecified formulation JASON SANABRIA DO [facility] 05-25-2014 influenza virus vacc ine, unspecified formulation JASON SANABRIA DO [facility] 05-21-2011 pneumococcal polysaccharide vaccine, 23 valent JASON SANABRIA DO [facility] Payers Date Payer Category Payer Private Health Insurance [facility] [id number] 2022 Unknown [id number] 1960 Unknown [id number] 2.16.8 [id number] 1960 Unknown [id number] 2.16.8 [id number] 1961 Unknown [id number] 2.16.8 [id number] 1961 Unknown [id number] 2.16.8 [id number] 1961 Unknown [id number] 2.16.8 [id number] 1961 Unknown [id number] 2.16.8 [id number] 1961 Unknown [id number] 2.16.8 [id number] 1961 Unknown [id number] 2.16.8 [id number] 1961 Unknown [id number] 2.16.8 [id number] 1961 Unknown [id number] 2.16.8 [id number] 1961 Unknown [id number] 2.16.8 [id number] 1961 Unknown [id number] 2.16.8 [id number] Social History Date Type Detail Facility Start: 06-27-2019 Light tobacco smoker (finding) [facility] Sex Assigned At Female [facility] Start: 05-10-2021 Heavy tobacco smoker (finding) [facility] Medical Equipment Procedure Code Equipment Code Equipment Origin al Text Equipment Identifier Dates Blood Glucose Te st Strips Start: 11-24-2020 Lanc[facility] Start: 12-10-[address]ps Start: 11-24-2020 Lancets Start: 12-10-[address]ps Start: 11-24-2020 Lancets Start: 12-10-[address]ps Start: 11-24-2020 Lancets Start: 12-10-[address]ps Start: 11-24-2020 Lancets Start: 12-10-[address]ps Start: 11-24-2020 [facility]ets Start: 12-10-[address]ps Start: 11-24-2020 Lancets Start: 12-10-[address]ps Start: 11-24-2020 Lancets Start: 12-10-[address]ps Start: 11-24-2020 Lancets Start: 12-10-[address]ps Start: 11-24-2020 Lancets Start: 12-10-2020 See Instructions , Quantity sufficient for 30 days. She is to check her fasting sugar daily. 0 refills. Formulary specific to match glucometer., # 1 EA, 0 Refill(s), Pharmacy: [facility] [address] Diabetes Hypercholesterolemia , 176.1, cm, 05/0... Start: 11-24-2020 See Instructions , Quantity sufficient for 30 days. Check fasting blood sugar daily. 11 refills. Diagnosis diabetes type 2, # 1 EA, 11 Refill(s), Pharmacy: [facility] [address] Diabetes Hypercholesterolemia , 176.1, cm, 09/24/20 8:13:00 EDT, He... Start: 12-10-2020 See Instructions , Quantity sufficient for 30 days. She is to check her fasting sugar daily. 0 refills. Formulary specific to match glucometer., # 1 EA, 0 Refill(s), Pharmacy: [facility] [address] Diabetes Hypercholesterolemia , 176.1, cm, 05/0... Start: 11-24-2020 See Instructions , Quantity sufficient for 30 days. Check fasting blood sugar daily. 11 refills. Diagnosis diabetes type 2, # 1 EA, 11 Refill(s), Pharmacy: [facility] [address] Diabetes Hypercholesterolemia , 176.1, cm, 09/24/20 8:13:00 EDT, He... Start: 12-10-2020 See Instructions , Quantity sufficient for 30 days. She is to check her fasting sugar daily. 0 refills. Formulary specific to match glucometer., # 1 EA, 0 Refill(s), [facility] Diabetes Hypercholesterolemia , 176.1, cm, 05/0... Start: 11-24-2020 See Instructions , Quantity sufficient for 30 days. Check fasting blood sugar daily. 11 refills. Diagnosis diabetes type 2, # 1 EA, 11 Refill(s), Pharmacy: [address] Diabetes Hypercholesterolemia , 176.1, cm, 09/24/20 8:13:00 EDT, He... Start: 12-10-2020 See Instructions , Quantity sufficient for 30 days. She is to check her fasting sugar daily. 0 refills. Formulary specific to match glucometer., # 1 EA, 0 Refill(s), Pharmacy: [address] Diabetes Hypercholesterolemia , 176.1, cm, 05/0... Start: 11-24-2020 See Instructions , Quantity sufficient for 30 days. Check fasting blood sugar daily. 11 refills. Diagnosis diabetes type 2, # 1 EA, 11 Refill(s), Pharmacy: [address], Diabetes Hypercholesterolemia , 176.1, cm, 09/24/20 8:13:00 EDT, He... Start: 12-10-2020 See Instructions , Quantity sufficient for 30 days. She is to check her fasting sugar daily. 0 refills. Formulary specific to match glucometer., # 1 EA, 0 Refill(s), Pharmacy: [address], Diabetes Hypercholesterolemia , 176.1, cm, 05/0... Start: 11-24-2020 See Instructions , Quantity sufficient for 30 days. Check fasting blood sugar daily. 11 refills. Diagnosis diabetes type 2, # 1 EA, 11 Refill(s), Pharmacy: [address], Diabetes Hypercholesterolemia , 176.1, cm, 09/24/20 8:13:00 EDT, He... Start: 12-10-2020 See Instructions , Quantity sufficient for 30 days. She is to check her fasting sugar daily. 0 refills. Formulary specific to match glucometer., # 1 EA, 0 Refill(s), Pharmacy: [address], Diabetes Hypercholesterolemia , 176.1, cm, 05/0... Start: 11-24-2020 See Instructions , Quantity sufficient for 30 days. Check fasting blood sugar daily. 11 refills. Diagnosis diabetes type 2, # 1 EA, 11 Refill(s), Pharmacy: [address], Diabetes Hypercholesterolemia , 176.1, cm, 09/24/20 8:13:00 EDT, He... Start: 12-10-2020 See Instructions , Quantity sufficient for 30 days. She is to check her fasting sugar daily. 0 refills. Formulary specific to match glucometer., # 1 EA, 0 Refill(s), Pharmacy: [address] Diabetes Hypercholesterolemia , 176.1, cm, 05/0... Start: 11-24-2020 See Instructions , Quantity sufficient for 30 days. Check fasting blood sugar daily. 11 refills. Diagnosis diabetes type 2, # 1 EA, 11 Refill(s), Pharmacy: [address], Diabetes Hypercholesterolemia , 176.1, cm, 09/24/20 8:13:00 EDT, He... Start: 12-10-2020 See Instructions , Quantity sufficient for 30 days. She is to check her fasting sugar daily. 0 refills. Formulary specific to match glucometer., # 1 EA, 0 Refill(s), Pharmacy: [address], Diabetes Hypercholesterolemia , 176.1, cm, 05/0... Start: 11-24-2020 See Instructions , Quantity sufficient for 30 days. Check fasting blood sugar daily. 11 refills. Diagnosis diabetes type 2, # 1 EA, 11 Refill(s), Pharmacy: [address], Diabetes Hypercholesterolemia , 176.1, cm, 09/24/20 8:13:00 EDT, He... Start: 12-10-2020 See Instructions , Quantity sufficient for 30 days. She is to check her fasting sugar daily. 0 refills. Formulary specific to match glucometer., # 1 EA, 0 Refill(s), Pharmacy: [address] Diabetes Hypercholesterolemia , 176.1, cm, 05/0... Start: 11-24-2020 See Instructions , Quantity sufficient for 30 days. Check fasting blood sugar daily. 11 refills. Diagnosis diabetes type 2, # 1 EA, 11 Refill(s), Pharmacy: [address], Diabetes Hypercholesterolemia , 176.1, cm, 09/24/20 8:13:00 EDT, He... Start: 12-10-2020 See Instructions , Quantity sufficient for 30 days. She is to check her fasting sugar daily. 0 refills. Formulary specific to match glucometer., # 1 EA, 0 Refill(s), Pharmacy: [address], Diabetes Hypercholesterolemia , 176.1, cm, 09/24/20 8:13:00 EDT, Height, 111.3, kg, 09/24/20 8:13:00 EDT, Dosing Weight Start: 11-24-2020 See Instructions , Quantity sufficient for 30 days. Check fasting blood sugar daily. 11 refills. Diagnosis diabetes type 2, # 1 EA, 11 Refill(s), Pharmacy: [address], Diabetes Hypercholesterolemia , 176.1, cm, 09/24/20 8:13:00 EDT, Height, 111.3, kg, 09/24/20 8:13:00 EDT, Dosing Weight Start: 12-10-2020 See Instructions , Quantity sufficient for 30 days. She is to check her fasting sugar daily. 0 refills. Formulary specific to match glucometer., # 1 EA, 0 Refill(s), Pharmacy: [address], Diabetes Hypercholesterolemia , 176.1, cm, 09/24/20 8:13:00 EDT, Height, 111.3, kg, 09/24/20 8:13:00 EDT, Dosing Weight Start: 11-24-2020 See Instructions , Quantity sufficient for 30 days. Check fasting blood sugar daily. 11 refills. Diagnosis diabetes type 2, # 1 EA, 11 Refill(s), Pharmacy: [address], Diabetes Hypercholesterolemia , 176.1, cm, 09/24/20 8:13:00 EDT, Height, 111.3, kg, 09/24/20 8:13:00 EDT, Dosing Weight Start: 12-10-2020 See Instructions , Quantity sufficient for 30 days. She is to check her fasting sugar daily. 0 refills. Formulary specific to match glucometer., # 1 EA, 0 Refill(s), Pharmacy: [facility] [place] [address]., Diabetes Hypercholesterolemia , 176.1, cm, 09/24/20 8:13:00 EDT, Height, 111.3, kg, 09/24/20 8:13:00 EDT, Dosing Weight Start: 11-24-2020 See Instructions , Quantity sufficient for 30 days. Check fasting blood sugar daily. 11 refills. Diagnosis diabetes type 2, # 1 EA, 11 Refill(s), Pharmacy: [facility], Diabetes Hypercholesterolemia , 176.1, cm, 09/24/20 8:13:00 EDT, Height, 111.3, kg, 09/24/20 8:13:00 EDT, Dosing Weight Start: 12-10-2020 See Instructions , Quantity sufficient for 30 days. She is to check her fasting sugar daily. 0 refills. Formulary specific to match glucometer., # 1 EA, 0 Refill(s), Pharmacy: [facility], Diabetes Hypercholesterolemia , 176.1, cm, 09/24/20 8:13:00 EDT, Height, 111.3, kg, 09/24/20 8:13:00 EDT, Dosing Weight Start: 11-24-2020 See Instructions , Quantity sufficient for 30 days. Check fasting blood sugar daily. 11 refills. Diagnosis diabetes type 2, # 1 EA, 11 Refill(s), Pharmacy: [facility], Diabetes Hypercholesterolemia , 176.1, cm, 09/24/20 8:13:00 EDT, Height, 111.3, kg, 09/24/20 8:13:00 EDT, Dosing Weight Start: 12-10-2020 Functional Status Date Assessment Result Facility 04-20-2022 Functional Status Home Living Ad ditional Information Objective: ROM/ Strength: See chart for shoulder Cervical AROM: NT Cardiovascular screen: BP:110/72 HR: 73 O2 sat: 93% Joint Mobility: not tested Observation: Surgical portals are intact without any excess redness or obvious signs of infection Elbow Wrist and hand: Mild restriction in thumb/finger opposition R hand, Mild restriction with finger flexion grossly. Encouraged hand pumps and thumb/finger opp [facility] 12-06-2021 Functional Status Ambulating in nieves, Ambulating in room, Awake [facility] 12-05-2021 Functional Status Standard Safet y ID band on, Allergy Band on, Call device within reach, Bed in low position, Wheels locked, Upper/Half-Length side-rails up, personal items within reach, Visitor at bedside [facility] Mental Status Date Assessment Result Facility 12-06-2021 Mental Status Orientation Oriented x 4 [facility] 12-05-2021 Mental Status [facility] Clinical Notes 03-09-2021 to 02-16-2023 LaboratoryRadiologyLaboratoryRadiologyLaboratoryRadiologyLaboratoryRadiologyLabo ratoryRadiologyLaboratoryRadiologyLaboratoryRadiologyLaboratoryRadiologyLaborato ryRadiologyLaboratoryRadiologyLaboratory Note Date & Type Note Facility 02-16-2023 Note . MICRO - Microbiology PROCEDURE: Culture Wound Aerobic with Gram Stain [*1] SOURCE: Abscess BODY SITE: Labia COLLECTED DATE/TIME: 02/13/2023 16:42 EDT RECEIVED DATE/TIME: 02/13/2023 22:55 EDT START DATE/TIME: 02/13/2023 22:55 EDT FREE TEXT SOURCE: FINAL REPORTS Final Report [] Verified Date/Time/Personnel: 02/16/2023 07:50 EDT Normal Vaginal Ashely: Present Sensitivity testing not indicated. Neisseria gonorrhoeae: Negative PRELIMINARY REPORTS Preliminary Report [] Verified Date/Time/Personnel: 02/15/2023 08:55 EDT Normal Vaginal Ashely: Present Sensitivity testing not indicated. Neisseria gonorrhoeae: Pending Preliminary Report [] Verified Date/Time/Personnel: 02/14/2023 12:13 EDT No growth to date STAINS GS [] Verified Date/Time/Personnel: 02/13/2023 23:20 EDT Rare Polymorphonuclear cells No organisms seen. Performing Locations *1: This test was performed at: [facility], [address] [place] [address], [id number] , [facility] ([place]) 10-25-2022 Note . MICRO - Microbiology PROCEDURE: Urine Culture [*1] SOURCE: Urine BODY SITE: COLLECTED DATE/TIME: 10/24/2022 12:59 EDT RECEIVED DATE/TIME: 10/24/2022 18:58 EDT START DATE/TIME: 10/24/2022 18:58 EDT FREE TEXT SOURCE: FINAL REPORTS Final Report [] Verified Date/Time/Personnel: 10/25/2022 14:56 EDT 10,000 - 50,000 cfu/ml Mixed growth consistent with normal urogenital ashely. Performing Locations *1: This test was performed at: [address], [address] , [facility] ([place]) 07-28-2022 Note . MICRO - Microbiology PROCEDURE: Urine Culture [*1] SOURCE: Urine, Clean Catch BODY SITE: COLLECTED DATE/TIME: 07/26/2022 10:56 EST RECEIVED DATE/TIME: 07/26/2022 22:15 EST START DATE/TIME: 07/26/2022 22:16 EST FREE TEXT SOURCE: FINAL REPORTS Final Report [] Verified Date/Time/Personnel: 07/28/2022 07:26 EST >100,000 cfu/ml Klebsiella variicola PRELIMINARY REPORTS Preliminary Report [] Verified Date/Time/Personnel: 07/27/2022 12:09 EST >100,000 cfu/ml Klebsiella variicola MADISYN to follow SUSCEPTIBILITY RESULTS Klebsiella variicola Antibiotic MADISYN Dilut MADISYN Inter Ampicillin >16 Resistant Ampicillin/ <=4/2 Susceptible Sulbactam Aztreonam <=4 Susceptible Cefazolin <=2 Susceptible Ciprofloxacin 0.5 Intermediate Ertapenem <=0.5 Susceptible Gentamicin <=2 Susceptible Imipenem <=1 Susceptible Levofloxacin <=0.5 Susceptible Meropenem <=1 Susceptible Minocycline 8 Intermediate Nitrofurantoin 64 Intermediate Piperacillin/ <=8 Susceptible Tazobactam Trimethoprim/ <=0.5/9.5 Susceptible Sulfa Performing Locations *1: This test was performed at: [address], [address] , [facility] ([place]) 12-06-2021 Hospital Discharge instructions Patient Education 12/06/2021 00:13:25 Back Pain (Acute or Chronic) Back Pain (Acute or Chronic) Back pain is one of the most common problems. The good news is that most people feel better in 1 to 2 weeks, and most of the rest in 1 to 2 months. Most people can remain active. People who have pain describe it differently not everyone is the same. The pain can be sharp, stabbing, shooting, aching, cramping or burning. Movement, standing, bending, lifting, sitting, or walking may worsen pain. It can be localized to one spot or area, or it can be more generalized. It can spread or radiate upwards, to the front, or go down your arms or legs (sciatica). It can cause muscle spasm. Most of the time, mechanical problems with the muscles or spine cause the pain. Mechanical problems are usually caused by an injury to the muscles or ligaments. While illness can cause back pain, it is usually not caused by a serious illness. Mechanical problems include: Physical activity such as sports, exercise, work, or normal activity Overexertion, lifting, pushing, pulling incorrectly or too aggressively Sudden twisting, bending, or stretching from an accident, or accidental movement Poor posture Stretching or moving wrong, without noticing pain at the time Poor coordination, lack of regular exercise (check with your doctor about this) Spinal disc disease or arthritis Stress Pain can also be related to , or illness like appendicitis, bladder or kidney infections, pelvic infections, and many other things. Acute back pain usually gets better in 1 to 2 weeks. Back pain related to disk disease, arthritis in the spinal joints or spinal stenosis (narrowing of the spinal canal) can become chronic and last for months or years. Unless you had a physical injury (for example, a car accident or fall) X-rays are usually not needed for the initial evaluation of back pain. If pain continues and does not respond to medical treatment, X-rays and other tests may be needed. Home care Try these home care recommendations: When in bed, try to find a position of comfort. A firm mattress is best. Try lying flat on your back with pillows under your knees. You can also try lying on your side with your knees bent up towards your chest and a pillow between your knees. At first, do not try to stretch out the sore spots. If there is a strain, it is not like the good soreness you get after exercising without an injury. In this case, stretching may make it worse. Don't sit for long periods, as in a long car ride or during other travel. This puts more stress on the lower back than standing or walking. During the first 24 to 72 hours after an acute injury or flare up of chronic back pain, apply an ice pack to the painful area for 20 minutes and then remove it for 20 minutes. Do this over a period of 60 to 90 minutes or several times a day. This will reduce swelling and pain. Wrap the ice pack in a thin towel or plastic to protect your skin. You can start with ice, then switch to heat. Heat (hot shower, hot bath, or heating pad) reduces pain and works well for muscle spasms. Heat can be applied to the painful area for 20 minutes then remove it for 20 minutes. Do this over a period of 60 to 90 minutes or several times a day. Do not sleep on a heating pad. It can lead to skin georges or tissue damage. You can alternate ice and heat therapy. Talk with your doctor about the best treatment for your back pain. Therapeutic massage can help relax the back muscles without stretching them. Be aware of safe lifting methods and do not lift anything without stretching first. Medicines Talk to your doctor before using medicine, especially if you have other medical problems or are taking other medicines. You may use lavd-pyc-icabvxy medicine as directed on the bottle to control pain, unless another pain medicine was prescribed. If you have chronic conditions like diabetes, liver or kidney disease, stomach ulcers, or gastrointestinal bleeding, or are taking blood thinners, talk to your doctor before taking any medicine. Be careful if you are given a prescription medicines, narcotics, or medicine for muscle spasms. They can cause drowsiness, affect your coordination, reflexes, and judgement. Do not drive or operate heavy machinery. Follow-up care Follow up with your healthcare provider, or as advised. A radiologist will review any X-rays that were taken. Your provide will notify you of any new findings that may affect your care. Call 911 Call 911 if any of the following occur: Trouble breathing Confusion Very drowsy or trouble awakening Fainting or loss of consciousness Rapid or very slow heart rate Loss of bowel or bladder control When to seek medical advice Call your healthcare provider right away if any of these occur: Pain becomes worse or spreads to your legs Weakness or numbness in one or both legs Numbness in the groin or genital area [employer]. [address] [place] [address]. All rights reserved. This information is not intended as a substitute for professional medical care. Always follow your healthcare professional's instructions. 12/06/2021 00:13:07 Arthralgia Arthralgia Arthralgia is the term for pain in or around the joint. It is a symptom, not a disease. This pain may involve one or more joints. In some cases, the pain moves from joint to joint. There are many causes for joint pain. These include: Injury Osteoarthritis (wearing out of the joint surface) Gout (inflammation of the joint due to crystals in the joint fluid) Infection inside the joint Bursitis (inflammation of the fluid-filled sacs around the joint) Autoimmune disorders such as rheumatoid arthritis or lupus Tendonitis (inflammation of chords that attach muscle to bone) Home care Rest the involved joint(s) until your symptoms improve. You may be prescribed pain medicine. If none is prescribed, you may use acetaminophen or ibuprofen to control pain and inflammation. Follow-up care Follow up with your healthcare provider or as advised. When to seek medical advice Contact your healthcare provider right away if any of the following occurs: Pain, swelling, or redness of joint increases Pain worsens or recurs after a period of improvement Pain moves to other joints You cannot bear weight on the affected joint You cannot move the affected joint Joint appears deformed New rash appears Fever of 100.4 F (38 C) or higher, or as directed by your healthcare provider [employer]. [address] [place] [id number]. All rights reserved. This information is not intended as a substitute for professional medical care. Always follow your healthcare professional's instructions. 12/06/2021 00:13:01 Hypertension, Established Established High Blood Pressure High blood pressure (hypertension) is a chronic disease. Often, healthcare providers don t know what causes it. But it can be caused by certain health conditions and medicines. If you have high blood pressure, you may not have any symptoms. If you do have symptoms, they may include headache, dizziness, changes in your vision, chest pain, and shortness of breath. But even without symptoms, high blood pressure that s not treated raises your risk for heart attack, heart failure, and stroke. High blood pressure is a serious health risk and shouldn t be ignored. Blood pressure measurements are given as 2 numbers. Systolic blood pressure is the upper number. This is the pressure when the heart contracts. Diastolic blood pressure is the lower number. This is the pressure when the heart relaxes between beats. You will see your blood pressure readings written together. For example, a person with a systolic pressure of 118 and a diastolic pressure of 78 will have 118/78 written in the medical record. Blood pressure is categorized as normal, elevated, or stage 1 or stage 2 high blood pressure: Normal blood pressure is systolic of less than 120 and diastolic of less than 80 (120/80) Elevated blood pressure is systolic of 120 to 129 and diastolic less than 80 Stage 1 high blood pressure is systolic is 130 to 139 or diastolic between 80 to 89 Stage 2 high blood pressure is when systolic is 140 or higher or the diastolic is 90 or higher Home care If you have high blood pressure, follow these home care guidelines to help lower your blood pressure. If you are taking medicines for high blood pressure, these methods may reduce or end your need for medicines in the future. Start a weight-loss program if you are overweight. Cut back on how much salt you get in your diet. Here s how to do this: oDon t eat foods that have a lot of salt. These include olives, pickles, smoked meats, and salted potato chips. oDon t add salt to your food at the table. oUse only small amounts of salt when cooking. Start an exercise program. Talk with your healthcare provider about the type of exercise program that would be best for you. It doesn't have to be hard. Even brisk walking for 20 minutes 3 times a week is a good form of exercise. Don t take medicines that stimulate the heart. This includes many gqxc-jrv-cjhrxib cold and sinus decongestant pills and sprays, as well as diet pills. Check the warnings about high blood pressure on the label. Before buying any muuf-gqk-wvhrold medicines or supplements, always ask the pharmacist about the product's potential interaction with your high blood pressure and your high blood pressure medicines. Stimulants such as amphetamine or cocaine could be deadly for someone with high blood pressure. Never take these. Limit how much caffeine you get in your diet. Switch to caffeine-free products. Stop smoking. If you are a long-time smoker, this can be hard. Talk to your healthcare provider about medicines and nicotine replacement options to help you. Also, enroll in a stop-smoking program to make it more likely that you will quit for good. Learn how to handle stress. This is an important part of any program to lower blood pressure. Learn about relaxation methods like meditation, yoga, or biofeedback. If your provider prescribed medicines, take them exactly as directed. Missing doses may cause your blood pressure get out of control. If you miss a dose or doses, check with your healthcare provider or pharmacist about what to do. Consider buying an automatic blood pressure machine to check your blood pressure at home. Ask your provider for a recommendation. You can get one of these at most pharmacies. The [place] [employer] recommends the following guidelines for home blood pressure monitoring: Don't smoke or drink coffee for 30 minutes before taking your blood pressure. Go to the bathroom before the test. Relax for 5 minutes before taking the measurement. Sit with your back supported (don't sit on a couch or soft chair); keep your feet on the floor uncrossed. Place your arm on a solid flat surface (like a table) with the upper part of the arm at heart level. Place the middle of the cuff directly above the bend of the elbow. Check the monitor's instruction manual for an illustration. Take multiple readings. When you measure, take 2 to 3 readings one minute apart and record all of the results. Take your blood pressure at the same time every day, or as your healthcare provider recommends. Record the date, time, and blood pressure reading. Take the record with you to your next medical appointment. If your blood pressure monitor has a built-in memory, simply take the monitor with you to your next appointment. Call your provider if you have several high readings. Don't be frightened by a single high blood pressure reading, but if you get several high readings, check in with your healthcare provider. Note: When blood pressure reaches a systolic (top number) of 180 or higher OR diastolic (bottom number) of 110 or higher, seek emergency medical treatment. Follow-up care You will need to see your healthcare provider regularly. This is to check your blood pressure and to make changes to your medicines. Make a follow-up appointment as directed. Bring the record of your home blood pressure readings to the appointment. When to seek medical advice Call your healthcare provider right away if any of these occur: Blood pressure reaches a systolic (upper number) of 180 or higher OR a diastolic (bottom number) of 110 or higher Chest pain or shortness of breath Severe headache Throbbing or rushing sound in the ears Nosebleed Sudden severe pain in your belly (abdomen) Extreme drowsiness, confusion, or fainting Dizziness or spinning sensation (vertigo) Weakness of an arm or leg or one side of the face You have problems speaking or seeing [id number] [employer] [place] [id number]. All rights reserved. This information is not intended as a substitute for professional medical care. Always follow your healthcare professional's instructions. 12/06/2021 00:12:58 Headache, Migraine, Classic Migraine Headache This often severe type of headache is different from other types of headaches in that symptoms other than pain occur with the headache. Nausea and vomiting, lightheadedness, sensitivity to light (photophobia), and other visual disturbances are common migraine symptoms. The pain may last from a few hours to several days. It is not clear why migraines occur but certain factors called triggers can raise the risk of having a migraine attack. A migraine may be triggered by emotional stress or depression, or by hormone changes during the menstrual cycle. Other triggers include control pills, overuse of migraine medicines, alcohol or caffeine, foods with tyramine (such as aged cheese and wine), eyestrain, weather changes, missed meals, or too little or too much sleep. Home care Follow these tips when taking care of yourself at home: Don t drive yourself home if you were given pain medicine for your headache or are having visual symptoms. Instead, have someone else drive you home. Try to sleep when you get home. You should feel much better when you wake up. Cold can help ease migraine symptoms. Put an ice pack on your forehead or at the base of your skull. Put heat on the back of your neck to help ease any neck spasm. Drink only clear liquids or eat a light diet until your symptoms get better. This will help you avoid nausea and vomiting. How to prevent migraines Pay attention to what seems to trigger your headache. Try to avoid the triggers when you can. If you have frequent headaches, consider keeping a headache diary. In it, write down what you were doing, feeling, or eating in the hours before each headache. Show this to your healthcare provider to help find the cause of your headaches. If stress seems to be a trigger for your headaches, figure out what is causing stress in your life. Learn new ways to handle your stress. Ideas include regular exercise, biofeedback, self-hypnosis, yoga, and meditation. Talk with your healthcare provider to find out more information about managing stress. Many books and digital media are also available on this subject. Tyramine is a substance found in many foods. It can trigger a migraine in some people. These foods contain tyramine: Chocolate Yogurt All cheeses, but especially aged cheeses Smoked or pickled fish and meat, including land, caviar, bologna, pepperoni, and salami Liver Avocados Bananas Figs Raisins Red wine Try staying away from these foods for 1 to 2 months to see if you have fewer headaches. How to treat future headaches Take time out at the first sign of a headache, if possible. Find a quiet, dark, comfortable place to sit or lie down. Let yourself relax or sleep. Put an ice pack on your forehead or on the area of greatest pain. A heating pad and massage may help if you are having a muscle spasm and tightness in your neck. If you have been prescribed a medicine to stop a migraine headache, use this at the first warning sign of the headache for best results. First signs may be an aura or pain. If you need to take medicine often for your migraine, talk with your healthcare provider about other ways to prevent your headaches. Follow-up care Follow up with your healthcare provider, or as advised. Talk with your provider if you have frequent headaches. He or she can figure out a treatment plan. Ask if you can have medicine to take at home the next time you get a bad headache. This may keep you from having to visit the emergency department in the future. You may need to see a headache specialist (neurologist) if you continue to have headaches. When to seek medical advice Call your healthcare provider right away if any of these occur: Your head pain gets worse, or doesn t get better within 24 hours You can t keep liquids down (repeated vomiting) Pain in your sinuses, ears, or throat Fever of 100.4 F (38 C) or higher, or as directed by your healthcare provider Stiff neck Extreme drowsiness, confusion, or fainting Dizziness, or dizziness with spinning sensation (vertigo) Weakness in an arm or leg, or on one side of your face Difficulty talking or seeing [id number] [employer]. [address] [place] [address]. All rights reserved. This information is not intended as a substitute for professional medical care. Always follow your healthcare professional's instructions. Follow Up Care 12/05/2021 22:41:21 With:your pcp Address:Unknown When:2-4 days Comments:Schedule appointment as soon as possibleReturn to ED if symptoms worsen With:ISIDRO BRUCE Address: [address] [place] [address] [address] [place] [address] [phone] Business (1) When:2-4 days Comments:Schedule appointment as soon as possibleReturn to ED if symptoms worsen [facility] 12-06-2021 Note Discharge Instructions Thank you for allowing [facility] to assist you with your healthcare needs. The following is important discharge information regarding your hospital visit. Diagnosis from Today's Visit Migraine Hypertension Arthralgia Back pain What to Do Next Instructions from Your Care Team No qualifying data available. Post Acute Orders No qualifying data available. You Need to Schedule the Following Appointments Follow Up with your pcp When Within 2-4 days Why: Schedule appointment as soon as possible Return to ED if symptoms worsen Follow Up with ISIDRO BRUCE When Within 2-4 days Why: Schedule appointment as soon as possible Return to ED if symptoms worsen Where: [address] [place] [address] [address] [facility] [address] [place] [address]- [phone] Business (1) Allergies erythromycin (Chest pain) macrolide antibiotics nitroglycerin (Headache) Medications Please ask your primary doctor or pharmacist before taking any other medication not listed, including over the counter drugs, herbal medications, vitamins and or supplements as they may interact with your home medications. What How Much When Why Instructions Last Dose New predniSONE (predniSONE 10 mg oral tablet) 3 by mouth Two (2) times a day Migraine Hypertension 1st dose in am Printed Prescription Unchanged albuterol (albuterol 2.5 mg/ 3 mL (0.083%) inhalation solution) 3 Milliliter by inhalation Four (4) times a day COPD - Chronic obstructive pulmonary disease Unchanged albuterol-ipratropium (Combivent Respimat CFC free 20 mcg-100 mcg/ inh inhalation aerosol) 1 puff(s) by inhalation Four (4) times a day COPD - Chronic obstructive pulmonary disease Unchanged amitriptyline (amitriptyline 50 mg oral tablet) 1 tab(s) by mouth Daily at bedtime Anxiety Depression increased dosing Unchanged celecoxib (celecoxib 200 mg oral capsule) 200 Milligram by mouth Once a day Back pain Duration: 90 Days Unchanged cholecalciferol (Vitamin D3 1250 mcg (50,000 intl units) oral capsule) 1 cap by mouth Every week Vitamin D deficiency Unchanged DME (Blood Glucose Test Machine) See instructions Diabetes Formulary appropriate please dx diabetes type 2. Use as instructed. Please give same as last time, previous machine broke Unchanged DME (Blood Glucose Test Strips) See instructions Diabetes Hypercholesterolemia Quantity sufficient for 30 days. She is to check her fasting sugar daily. 0 refills. Formulary specific to match glucometer. Unchanged DME (DME MISCellaneous) See instructions COPD - Chronic obstructive pulmonary disease Nebulizer and mask, tubing. Dx J44.9 Use 4 times daily as needed Unchanged DME (Lancets) See instructions Diabetes Hypercholesterolemia Quantity sufficient for 30 days. Check fasting blood sugar daily. 11 refills. Diagnosis diabetes type 2 Unchanged doxycycline (doxycycline hyclate 100 mg oral capsule) take 1 capsule by mouth twice a day if needed for ROSACEA FLARES Unchanged empagliflozin (Jardiance 25 mg oral tablet) 1 tab(s) by mouth Once a day (in the morning) Diabetes mellitus Unchanged escitalopram (escitalopram 10 mg oral tablet) 1 tab(s) by mouth Once a day Anxiety Depression Unchanged lisinopril (lisinopril 5 mg oral tablet) 1 tab(s) by mouth Once a day Benign essential hypertension Diabetes Unchanged loratadine (loratadine 10 mg oral tablet) 1 tab(s) by mouth Once a day Seasonal allergies take 1 tablet by mouth once daily Unchanged metFORMIN (metFORMIN 500 mg oral tablet EXTENDED RELEASE) 2 tab(s) by mouth Two (2) times a day Diabetes Diabetes mellitus Unchanged metroNIDAZOLE topical (MetroGel 1% topical gel) 1 application Topical Once a day Rosacea Duration: 30 Days apply a thin film to affected area after washing when she has a rosacea flare up Unchanged pantoprazole (pantoprazole 40 mg oral enteric coated tablet) 1 tab(s) by mouth Once a day GERD without esophagitis Unchanged propranolol (propranolol 60 mg oral tablet) 1 tab(s) by mouth Two (2) times a day Benign essential hypertension GERD without esophagitis Unchanged simvastatin (simvastatin 20 mg oral tablet) 1 tab(s) by mouth Daily at bedtime Hypercholesterolemia Decrease dose Unchanged SUMAtriptan (Imitrex 100 mg oral tablet) 1 tab(s) by mouth Every day as needed for for migraine headache Please take this list to your next doctor s visit. Bring all medications you take, including over the counter medications, herbals and other supplements with you to your doctor s visit. Patients and families are reminded to discard old lists and to update any records with all medication providers or retail pharmacies. Education Materials Back Pain (Acute or Chronic) Back pain is one of the most common problems. The good news is that most people feel better in 1 to 2 weeks, and most of the rest in 1 to 2 months. Most people can remain active. People who have pain describe it differently not everyone is the same. The pain can be sharp, stabbing, shooting, aching, cramping or burning. Movement, standing, bending, lifting, sitting, or walking may worsen pain. It can be localized to one spot or area, or it can be more generalized. It can spread or radiate upwards, to the front, or go down your arms or legs (sciatica). It can cause muscle spasm. Most of the time, mechanical problems with the muscles or spine cause the pain. Mechanical problems are usually caused by an injury to the muscles or ligaments. While illness can cause back pain, it is usually not caused by a serious illness. Mechanical problems include: Physical activity such as sports, exercise, work, or normal activity Overexertion, lifting, pushing, pulling incorrectly or too aggressively Sudden twisting, bending, or stretching from an accident, or accidental movement Poor posture Stretching or moving wrong, without noticing pain at the time Poor coordination, lack of regular exercise (check with your doctor about this) Spinal disc disease or arthritis Stress Pain can also be related to , or illness like appendicitis, bladder or kidney infections, pelvic infections, and many other things. Acute back pain usually gets better in 1 to 2 weeks. Back pain related to disk disease, arthritis in the spinal joints or spinal stenosis (narrowing of the spinal canal) can become chronic and last for months or years. Unless you had a physical injury (for example, a car accident or fall) X-rays are usually not needed for the initial evaluation of back pain. If pain continues and does not respond to medical treatment, X-rays and other tests may be needed. Home care Try these home care recommendations: When in bed, try to find a position of comfort. A firm mattress is best. Try lying flat on your back with pillows under your knees. You can also try lying on your side with your knees bent up towards your chest and a pillow between your knees. At first, do not try to stretch out the sore spots. If there is a strain, it is not like the good soreness you get after exercising without an injury. In this case, stretching may make it worse. Don't sit for long periods, as in a long car ride or during other travel. This puts more stress on the lower back than standing or walking. During the first 24 to 72 hours after an acute injury or flare up of chronic back pain, apply an ice pack to the painful area for 20 minutes and then remove it for 20 minutes. Do this over a period of 60 to 90 minutes or several times a day. This will reduce swelling and pain. Wrap the ice pack in a thin towel or plastic to protect your skin. You can start with ice, then switch to heat. Heat (hot shower, hot bath, or heating pad) reduces pain and works well for muscle spasms. Heat can be applied to the painful area for 20 minutes then remove it for 20 minutes. Do this over a period of 60 to 90 minutes or several times a day. Do not sleep on a heating pad. It can lead to skin georges or tissue damage. You can alternate ice and heat therapy. Talk with your doctor about the best treatment for your back pain. Therapeutic massage can help relax the back muscles without stretching them. Be aware of safe lifting methods and do not lift anything without stretching first. Medicines Talk to your doctor before using medicine, especially if you have other medical problems or are taking other medicines. You may use qjep-ffy-elewlro medicine as directed on the bottle to control pain, unless another pain medicine was prescribed. If you have chronic conditions like diabetes, liver or kidney disease, stomach ulcers, or gastrointestinal bleeding, or are taking blood thinners, talk to your doctor before taking any medicine. Be careful if you are given a prescription medicines, narcotics, or medicine for muscle spasms. They can cause drowsiness, affect your coordination, reflexes, and judgement. Do not drive or operate heavy machinery. Follow-up care Follow up with your healthcare provider, or as advised. A radiologist will review any X-rays that were taken. Your provide will notify you of any new findings that may affect your care. Call 911 Call 911 if any of the following occur: Trouble breathing Confusion Very drowsy or trouble awakening Fainting or loss of consciousness Rapid or very slow heart rate Loss of bowel or bladder control When to seek medical advice Call your healthcare provider right away if any of these occur: Pain becomes worse or spreads to your legs Weakness or numbness in one or both legs Numbness in the groin or genital area [employer]. [address] [place] [address]. All rights reserved. This information is not intended as a substitute for professional medical care. Always follow your healthcare professional's instructions. Arthralgia Arthralgia is the term for pain in or around the joint. It is a symptom, not a disease. This pain may involve one or more joints. In some cases, the pain moves from joint to joint. There are many causes for joint pain. These include: Injury Osteoarthritis (wearing out of the joint surface) Gout (inflammation of the joint due to crystals in the joint fluid) Infection inside the joint Bursitis (inflammation of the fluid-filled sacs around the joint) Autoimmune disorders such as rheumatoid arthritis or lupus Tendonitis (inflammation of chords that attach muscle to bone) Home care Rest the involved joint(s) until your symptoms improve. You may be prescribed pain medicine. If none is prescribed, you may use acetaminophen or ibuprofen to control pain and inflammation. Follow-up care Follow up with your healthcare provider or as advised. When to seek medical advice Contact your healthcare provider right away if any of the following occurs: Pain, swelling, or redness of joint increases Pain worsens or recurs after a period of improvement Pain moves to other joints You cannot bear weight on the affected joint You cannot move the affected joint Joint appears deformed New rash appears Fever of 100.4 F (38 C) or higher, or as directed by your healthcare provider [employer]. [address] [place] [address], [place] [address]. All rights reserved. This information is not intended as a substitute for professional medical care. Always follow your healthcare professional's instructions. Established High Blood Pressure High blood pressure (hypertension) is a chronic disease. Often, healthcare providers don t know what causes it. But it can be caused by certain health conditions and medicines. If you have high blood pressure, you may not have any symptoms. If you do have symptoms, they may include headache, dizziness, changes in your vision, chest pain, and shortness of breath. But even without symptoms, high blood pressure that s not treated raises your risk for heart attack, heart failure, and stroke. High blood pressure is a serious health risk and shouldn t be ignored. Blood pressure measurements are given as 2 numbers. Systolic blood pressure is the upper number. This is the pressure when the heart contracts. Diastolic blood pressure is the lower number. This is the pressure when the heart relaxes between beats. You will see your blood pressure readings written together. For example, a person with a systolic pressure of 118 and a diastolic pressure of 78 will have 118/78 written in the medical record. Blood pressure is categorized as normal, elevated, or stage 1 or stage 2 high blood pressure: Normal blood pressure is systolic of less than 120 and diastolic of less than 80 (120/80) Elevated blood pressure is systolic of 120 to 129 and diastolic less than 80 Stage 1 high blood pressure is systolic is 130 to 139 or diastolic between 80 to 89 Stage 2 high blood pressure is when systolic is 140 or higher or the diastolic is 90 or higher Home care If you have high blood pressure, follow these home care guidelines to help lower your blood pressure. If you are taking medicines for high blood pressure, these methods may reduce or end your need for medicines in the future. Start a weight-loss program if you are overweight. Cut back on how much salt you get in your diet. Here s how to do this: oDon t eat foods that have a lot of salt. These include olives, pickles, smoked meats, and salted potato chips. oDon t add salt to your food at the table. oUse only small amounts of salt when cooking. Start an exercise program. Talk with your healthcare provider about the type of exercise program that would be best for you. It doesn't have to be hard. Even brisk walking for 20 minutes 3 times a week is a good form of exercise. Don t take medicines that stimulate the heart. This includes many ouri-cyp-wokjgsv cold and sinus decongestant pills and sprays, as well as diet pills. Check the warnings about high blood pressure on the label. Before buying any hdgv-oqk-rwublvg medicines or supplements, always ask the pharmacist about the product's potential interaction with your high blood pressure and your high blood pressure medicines. Stimulants such as amphetamine or cocaine could be deadly for someone with high blood pressure. Never take these. Limit how much caffeine you get in your diet. Switch to caffeine-free products. Stop smoking. If you are a long-time smoker, this can be hard. Talk to your healthcare provider about medicines and nicotine replacement options to help you. Also, enroll in a stop-smoking program to make it more likely that you will quit for good. Learn how to handle stress. This is an important part of any program to lower blood pressure. Learn about relaxation methods like meditation, yoga, or biofeedback. If your provider prescribed medicines, take them exactly as directed. Missing doses may cause your blood pressure get out of control. If you miss a dose or doses, check with your healthcare provider or pharmacist about what to do. Consider buying an automatic blood pressure machine to check your blood pressure at home. Ask your provider for a recommendation. You can get one of these at most pharmacies. The [place] [employer] recommends the following guidelines for home blood pressure monitoring: Don't smoke or drink coffee for 30 minutes before taking your blood pressure. Go to the bathroom before the test. Relax for 5 minutes before taking the measurement. Sit with your back supported (don't sit on a couch or soft chair); keep your feet on the floor uncrossed. Place your arm on a solid flat surface (like a table) with the upper part of the arm at heart level. Place the middle of the cuff directly above the bend of the elbow. Check the monitor's instruction manual for an illustration. Take multiple readings. When you measure, take 2 to 3 readings one minute apart and record all of the results. Take your blood pressure at the same time every day, or as your healthcare provider recommends. Record the date, time, and blood pressure reading. Take the record with you to your next medical appointment. If your blood pressure monitor has a built-in memory, simply take the monitor with you to your next appointment. Call your provider if you have several high readings. Don't be frightened by a single high blood pressure reading, but if you get several high readings, check in with your healthcare provider. Note: When blood pressure reaches a systolic (top number) of 180 or higher OR diastolic (bottom number) of 110 or higher, seek emergency medical treatment. Follow-up care You will need to see your healthcare provider regularly. This is to check your blood pressure and to make changes to your medicines. Make a follow-up appointment as directed. Bring the record of your home blood pressure readings to the appointment. When to seek medical advice Call your healthcare provider right away if any of these occur: Blood pressure reaches a systolic (upper number) of 180 or higher OR a diastolic (bottom number) of 110 or higher Chest pain or shortness of breath Severe headache Throbbing or rushing sound in the ears Nosebleed Sudden severe pain in your belly (abdomen) Extreme drowsiness, confusion, or fainting Dizziness or spinning sensation (vertigo) Weakness of an arm or leg or one side of the face You have problems speaking or seeing [id number] [employer] [place] [address]. All rights reserved. This information is not intended as a substitute for professional medical care. Always follow your healthcare professional's instructions. Migraine Headache This often severe type of headache is different from other types of headaches in that symptoms other than pain occur with the headache. Nausea and vomiting, lightheadedness, sensitivity to light (photophobia), and other visual disturbances are common migraine symptoms. The pain may last from a few hours to several days. It is not clear why migraines occur but certain factors called triggers can raise the risk of having a migraine attack. A migraine may be triggered by emotional stress or depression, or by hormone changes during the menstrual cycle. Other triggers include control pills, overuse of migraine medicines, alcohol or caffeine, foods with tyramine (such as aged cheese and wine), eyestrain, weather changes, missed meals, or too little or too much sleep. Home care Follow these tips when taking care of yourself at home: Don t drive yourself home if you were given pain medicine for your headache or are having visual symptoms. Instead, have someone else drive you home. Try to sleep when you get home. You should feel much better when you wake up. Cold can help ease migraine symptoms. Put an ice pack on your forehead or at the base of your skull. Put heat on the back of your neck to help ease any neck spasm. Drink only clear liquids or eat a light diet until your symptoms get better. This will help you avoid nausea and vomiting. How to prevent migraines Pay attention to what seems to trigger your headache. Try to avoid the triggers when you can. If you have frequent headaches, consider keeping a headache diary. In it, write down what you were doing, feeling, or eating in the hours before each headache. Show this to your healthcare provider to help find the cause of your headaches. If stress seems to be a trigger for your headaches, figure out what is causing stress in your life. Learn new ways to handle your stress. Ideas include regular exercise, biofeedback, self-hypnosis, yoga, and meditation. Talk with your healthcare provider to find out more information about managing stress. Many books and digital media are also available on this subject. Tyramine is a substance found in many foods. It can trigger a migraine in some people. These foods contain tyramine: Chocolate Yogurt All cheeses, but especially aged cheeses Smoked or pickled fish and meat, including land, caviar, bologna, pepperoni, and salami Liver Avocados Bananas Figs Raisins Red wine Try staying away from these foods for 1 to 2 months to see if you have fewer headaches. How to treat future headaches Take time out at the first sign of a headache, if possible. Find a quiet, dark, comfortable place to sit or lie down. Let yourself relax or sleep. Put an ice pack on your forehead or on the area of greatest pain. A heating pad and massage may help if you are having a muscle spasm and tightness in your neck. If you have been prescribed a medicine to stop a migraine headache, use this at the first warning sign of the headache for best results. First signs may be an aura or pain. If you need to take medicine often for your migraine, talk with your healthcare provider about other ways to prevent your headaches. Follow-up care Follow up with your healthcare provider, or as advised. Talk with your provider if you have frequent headaches. He or she can figure out a treatment plan. Ask if you can have medicine to take at home the next time you get a bad headache. This may keep you from having to visit the emergency department in the future. You may need to see a headache specialist (neurologist) if you continue to have headaches. When to seek medical advice Call your healthcare provider right away if any of these occur: Your head pain gets worse, or doesn t get better within 24 hours You can t keep liquids down (repeated vomiting) Pain in your sinuses, ears, or throat Fever of 100.4 F (38 C) or higher, or as directed by your healthcare provider Stiff neck Extreme drowsiness, confusion, or fainting Dizziness, or dizziness with spinning sensation (vertigo) Weakness in an arm or leg, or on one side of your face Difficulty talking or seeing [id number] [employer]. [address] [place] [address]. All rights reserved. This information is not intended as a substitute for professional medical care. Always follow your healthcare professional's instructions. Additional Information VACCINATE! IT SAVES LIVES! Members of the community who have not yet received the COVID-19 vaccine and would like to receive it can visit one of [facility] vaccine clinics. There are many vaccine clinic locations within the [facility]. For locations and available times, please visit [email or web address]. It is important to note that some COVID mobile vaccine clinics are held outdoors and may be canceled in rainy or stormy conditions. To learn more about pediatric vaccinations (ages 5-11), we invite you to visit the [facility] webpage. [email or web address] To learn more about the COVID-19 vaccine, we invite you to visit the [facility] website for a list of frequently asked questions. [email or web address] [facility] Access Instructions: Stay connected with your healthcare team and access your personal medical information anytime with the [facility]. If you would like a full copy of your medical records please contact the [facility] Medical Records Department Sunday through Sunday between 8a.m. and 4:30p.m. Please follow the directions below to access the portal: 1.Access the email account you provided upon registration to the [facility].2.Look for an invitation email from [facility].3.Open the email and access the invitation link: Accept Invitation to [employer]4.Fill in the required louie to create your account. Sign into [email or web address] with your username and password that you created in the above steps to stay up to date. You can then view a summary of results, a summary of your visits, and the ability to download your summaries to your computer or send the information securely to a physician. Remember that your healthcare information is confidential, so carefully consider who you will allow to register on the [facility] Patient Portal for access to your information. You can also access the [facility] Patient Portal on the [employer] amando. Simply click on Health Records under Health Data and then click on the [employer] logo. HOW TO SAFELY DISPOSE OF PRESCRIPTION MEDICATIONS Please use one of the following methods to safely dispose of your unused medications. 1.Use a drug disposal kit: the drug disposal pouch allows you to safely discard your old and unused drugs. Ask your nurse to give you one when you are discharged.2.Visit a local take-back location: Many local pharmacies and police departments have programs that collect old and unwanted prescription drugs. Call your local pharmacy or go to http://[employer]/7N2Fl1a to find one close to you.3.Make use of household items: Use cat litter or old coffee grounds to dispose medications if other options are not available. Mix your drugs with these household products, seal them in an airtight container and throw it into the garbage. Call [facility]: [phone] to be sure your drugs can be disposed of in this way. Some medicines may require a different approach.4.Never flush your medications down the toilet. IF YOU HAVE BEEN PRESCRIBED AN OPIOIDS FOR PAIN If you have been prescribed an opioid (such as hydrocodone, oxycodone or morphine), it is critical to understand the possible side effects and risks of opioid pain medications. Even when taken as directed, opioids can have several side effects including: Tolerance, meaning you might need to take more of a medication for the same pain relief. Nausea, vomiting and/or constipation. Sleepiness, dizziness, dry mouth, confusion, depression or itching. Physical dependence, meaning you have withdrawal symptoms when a medication is stopped ? this can develop within a few days. KNOW YOUR RESPONSIBILITIES It is important to know exactly how much and how often to take the opioid pain medications you are prescribed. Never take opioids in higher amounts or more often than prescribed. Do not combine opioids with alcohol or other drugs that cause drowsiness, such as benzodiazepines, also known as benzos, including diazepam and alprazolam, muscle relaxants or sleep aids. Never sell or share prescription opioids. This is illegal. Store opioids in a secure place and out of reach of others (including children, family, friends and visitors). The last page(s) of this document has been signed and retained as a CHART COPY Signatures Patient Education Materials Back Pain (Acute or Chronic) Arthralgia Hypertension, Established Headache, Migraine, Classic Medication Leaflets My discharge plan and instructions have been reviewed and explained to me and I,HYACINTH WEI understand my current condition and have read and understand these discharge instructions. I have received a written copy of the plan/instructions. If I have questions, I am aware that I should contact my doctor. Patient/Certified Wellness Program Coordinator Signature: Date/Time: Relationship to Patient: Witness Name/Signature: Date/Time: [facility] 07-14-2021 HCoV 229E RNA ALEXEI+non-probe Ql (Nph) Not Detected *NA* (07/14/21 12:05 PM) [facility]/Sero 05-11-2021 Hospital Discharge instructions Patient Education 05/11/2021 11:43:30 Ganglion Cyst Ganglion Cyst A ganglion cyst is a non-cancerous, fluid-filled lump that occurs near a joint or tendon. The cyst grows out of a joint or the lining of a tendon. Ganglion cysts most often develop in the hand or wrist, but they can also develop in the shoulder, elbow, hip, knee, ankle, or foot. Ganglion cysts are ball-shaped or egg-shaped. Their size can range from the size of a pea to larger than a grape. Increased activity may cause the cyst to get bigger because more fluid starts to build up. What are the causes? The exact cause of this condition is not known, but it may be related to: Inflammation or irritation around the joint. An injury. Repetitive movements or overuse. Arthritis. What increases the risk? You are more likely to develop this condition if: You are a woman. You are 15 40 years old. What are the signs or symptoms? The main symptom of this condition is a lump. It most often appears on the hand or wrist. In many cases, there are no other symptoms, but a cyst can sometimes cause: Tingling. Pain. Numbness. Muscle weakness. Weak horizontal boring mill operator. Less range of motion in a joint. How is this diagnosed? Ganglion cysts are usually diagnosed based on a physical exam. Your health care provider will feel the lump and may shine a light next to it. If it is a ganglion cyst, the light will likely shine through it. Your health care provider may order an X-ray, ultrasound, or MRI to rule out other conditions. How is this treated? Ganglion cysts often go away on their own without treatment. If you have pain or other symptoms, treatment may be needed. Treatment is also needed if the ganglion cyst limits your movement or if it gets infected. Treatment may include: Wearing a brace or splint on your wrist or finger. Taking anti-inflammatory medicine. Having fluid drained from the lump with a needle (aspiration). Getting a steroid injected into the joint. Having surgery to remove the ganglion cyst. Placing a pad on your shoe or wearing shoes that will not rub against the cyst if it is on your foot. Follow these instructions at home: Do not press on the ganglion cyst, poke it with a needle, or hit it. Take euts-reh-nvwbppi and prescription medicines only as told by your health care provider. If you have a brace or splint: ?Wear it as told by your health care provider. ?Remove it as told by your health care provider. Ask if you need to remove it when you take a shower or a bath. Watch your ganglion cyst for any changes. Keep all follow-up visits as told by your health care provider. This is important. Contact a health care provider if: Your ganglion cyst becomes larger or more painful. You have pus coming from the lump. You have weakness or numbness in the affected area. You have a fever or chills. Get help right away if: You have a fever and have any of these in the cyst area: ?Increased redness. ?Red streaks. ?Swelling. Summary A ganglion cyst is a non-cancerous, fluid-filled lump that occurs near a joint or tendon. Ganglion cysts most often develop in the hand or wrist, but they can also develop in the shoulder, elbow, hip, knee, ankle, or foot. Ganglion cysts often go away on their own without treatment. This information is not intended to replace advice given to you by your health care provider. Make sure you discuss any questions you have with your health care provider. Document Released: 05/04/2001 Document Revised: 04/19/2018 Document Reviewed: 01/04/2018 [employer] Patient Education 2020 [employer] 05/11/2021 11:33:58 Nausea and Vomiting, Adult, Wttd-il-Vqrf Nausea and Vomiting, Adult Nausea is feeling sick to your stomach or feeling that you are about to throw up (vomit). Vomiting is when food in your stomach is thrown up and out of the mouth. Throwing up can make you feel weak. It can also make you lose too much water in your body (get dehydrated). If you lose too much water in your body, you may: Feel tired. Feel thirsty. Have a dry mouth. Have cracked lips. Go pee (urinate) less often. Older adults and people with other diseases or a weak body defense system (immune system) are at higher risk for losing too much water in the body. If you feel sick to your stomach and you throw up, it is important to follow instructions from your doctor about how to take care of yourself. Follow these instructions at home: Watch your symptoms for any changes. Tell your doctor about them. Follow these instructions to care for yourself at home. Eating and drinking Take an ORS (oral rehydration solution). This is a drink that is sold at pharmacies and stores. Drink clear fluids in small amounts as you are able, such as: ?Water. ?Ice chips. ?Fruit juice that has water added (diluted fruit juice). ?Low-calorie sports drinks. Eat bland, wpib-wa-tmvymn foods in small amounts as you are able, such as: ?Bananas. ?Applesauce. ?Rice. ?Low-fat (lean) meats. ?Tekoa. ?Crackers. Avoid drinking fluids that have a lot of sugar or caffeine in them. This includes energy drinks, sports drinks, and soda. Avoid alcohol. Avoid spicy or fatty foods. General instructions Take vtrp-saw-fdnznie and prescription medicines only as told by your doctor. Drink enough fluid to keep your pee (urine) pale yellow. Wash your hands often with soap and water. If you cannot use soap and water, use hand track walker. Make sure that all people in your home wash their hands well and often. Rest at home while you get better. Watch your condition for any changes. Take slow and deep breaths when you feel sick to your stomach. Keep all follow-up visits as told by your doctor. This is important. Contact a doctor if: Your symptoms get worse. You have new symptoms. You have a fever. You cannot drink fluids without throwing up. You feel sick to your stomach for more than 2 days. You feel light-headed or dizzy. You have a headache. You have muscle cramps. You have a rash. You have pain while peeing. Get help right away if: You have pain in your chest, neck, arm, or jaw. You feel very weak or you pass out (faint). You throw up again and again. You have throw up that is bright red or looks like black coffee grounds. You have bloody or black poop (stools) or poop that looks like tar. You have a very bad headache, a stiff neck, or both. You have very bad pain, cramping, or bloating in your belly (abdomen). You have trouble breathing. You are breathing very quickly. Your heart is beating very quickly. Your skin feels cold and clammy. You feel confused. You have signs of losing too much water in your body, such as: ?Dark pee, very little pee, or no pee. ?Cracked lips. ?Dry mouth. ?Sunken eyes. ?Sleepiness. ?Weakness. These symptoms may be an emergency. Do not wait to see if the symptoms will go away. Get medical help right away. Call your local emergency services (911 in the [place] Do not drive yourself to the hospital. Summary Nausea is feeling sick to your stomach or feeling that you are about to throw up (vomit). Vomiting is when food in your stomach is thrown up and out of the mouth. Follow instructions from your doctor about eating and drinking to keep from losing too much water in your body. Take kppc-dao-zunjcie and prescription medicines only as told by your doctor. Contact your doctor if your symptoms get worse or you have new symptoms. Keep all follow-up visits as told by your doctor. This is important. This information is not intended to replace advice given to you by your health care provider. Make sure you discuss any questions you have with your health care provider. Document Released: 10/23/2008 Document Revised: 08/29/2019 Document Reviewed: 10/15/2018 [employer] Patient Education 2020 [employer] 05/11/2021 11:33:53 Monitored Anesthesia Care, Care After Monitored Anesthesia Care, Care After These instructions provide you with information about caring for yourself after your procedure. Your health care provider may also give you more specific instructions. Your treatment has been planned according to current medical practices, but problems sometimes occur. Call your health care provider if you have any problems or questions after your procedure. What can I expect after the procedure? After your procedure, you may: Feel sleepy for several hours. Feel clumsy and have poor balance for several hours. Feel forgetful about what happened after the procedure. Have poor judgment for several hours. Feel nauseous or vomit. Have a sore throat if you had a breathing tube during the procedure. Follow these instructions at home: For at least 24 hours after the procedure: Have a responsible adult stay with you. It is important to have someone help care for you until you are awake and alert. Rest as needed. Do not: ?Participate in activities in which you could fall or become injured. ?Drive. ?Use heavy machinery. ?Drink alcohol. ?Take sleeping pills or medicines that cause drowsiness. ?Make important decisions or sign legal documents. ?Take care of children on your own. Eating and drinking Follow the diet that is recommended by your health care provider. If you vomit, drink water, juice, or soup when you can drink without vomiting. Make sure you have little or no nausea before eating solid foods. General instructions Take zkwi-uwz-lrctkwg and prescription medicines only as told by your health care provider. If you have sleep apnea, surgery and certain medicines can increase your risk for breathing problems. Follow instructions from your health care provider about wearing your sleep device: ?Anytime you are sleeping, including during daytime naps. ?While taking prescription pain medicines, sleeping medicines, or medicines that make you drowsy. If you smoke, do not smoke without supervision. Keep all follow-up visits as told by your health care provider. This is important. Contact a health care provider if: You keep feeling nauseous or you keep vomiting. You feel light-headed. You develop a rash. You have a fever. Get help right away if: You have trouble breathing. Summary For several hours after your procedure, you may feel sleepy and have poor judgment. Have a responsible adult stay with you for at least 24 hours or until you are awake and alert. This information is not intended to replace advice given to you by your health care provider. Make sure you discuss any questions you have with your health care provider. Document Released: 08/27/2016 Document Revised: 08/05/2018 Document Reviewed: 08/27/2016 [employer] Patient Education 2020 [employer] 05/11/2021 11:33:45 Lipoma Removal, Care After Lipoma Removal, Care After Refer to this sheet in the next few weeks. These instructions provide you with information about caring for yourself after your procedure. Your health care provider may also give you more specific instructions. Your treatment has been planned according to current medical practices, but problems sometimes occur. Call your health care provider if you have any problems or questions after your procedure. What can I expect after the procedure? After the procedure, it is common to have: Mild pain. Swelling. Bruising. Follow these instructions at home: Bathing Do not take baths, swim, or use a hot tub until your health care provider approves. Ask your health care provider if you can take showers. You may only be allowed to take sponge baths for bathing. Keep your bandage (dressing) dry until your health care provider says it can be removed. Incision care Follow instructions from your health care provider about how to take care of your incision. Make sure you: ?Wash your hands with soap and water before you change your bandage (dressing). If soap and water are not available, use hand track walker. ?Change your dressing as told by your health care provider. ?Leave stitches (sutures), skin glue, or adhesive strips in place. These skin closures may need to stay in place for 2 weeks or longer. If adhesive strip edges start to loosen and curl up, you may trim the loose edges. Do not remove adhesive strips completely unless your health care provider tells you to do that. Check your incision area every day for signs of infection. Check for: ?More redness, swelling, or pain. ?Fluid or blood. ?Warmth. ?Pus or a bad smell. Driving Do not drive or operate heavy machinery while taking prescription pain medicine. Do not drive for 24 hours if you received a medicine to help you relax (sedative) during your procedure. Ask your health care provider when it is safe for you to drive. General instructions Take lgmi-hjj-vnmjaeq and prescription medicines only as told by your health care provider. Do not use any tobacco products, such as cigarettes, chewing tobacco, and e-cigarettes. These can delay healing. If you need help quitting, ask your health care provider. Return to your normal activities as told by your health care provider. Ask your health care provider what activities are safe for you. Keep all follow-up visits as told by your health care provider. This is important. Contact a health care provider if: You have more redness, swelling, or pain around your incision. You have fluid or blood coming from your incision. Your incision feels warm to the touch. You have pus or a bad smell coming from your incision. You have pain that does not get better with medicine. Get help right away if: You have chills or a fever. You have severe pain. This information is not intended to replace advice given to you by your health care provider. Make sure you discuss any questions you have with your health care provider. Document Released: 07/20/2016 Document Revised: 12/28/2016 Document Reviewed: 07/20/2016 [employer] Patient Education 2020 [employer] Follow Up Care 05/04/2021 11:17:35 With:CONRAD SILVERIO JR, MD, Surgery, Surgery Address: [address] [facility] [place] [address]- When: Unknown Comments:Call office to make appointment. See Dr. Silverio in 2 weeks. [facility] 03-09-2021 HCoV 229E RNA ALEXEI+non-probe Ql (Nph) Not Detected *NA* (03/09/21 12:11 PM) AH Auto Viro/Sero SS Evaluation + Plan note Future Appointments Appointment Date:04/19/2021 08:30:00 AM Scheduled Provider:JASON SANABRIA DO Location:[facility] Appointment Type:PC OV Future Scheduled TestsThyroid Stimulating Hormone 03/26/21A1C Hemoglobin 03/26/21Lipid Profile 03/26/21Vitamin D Level 514/21Complete Metabolic Panel 21MA Mammo Screening Bilateral w/ Julius 07/21/20 [facility] Evaluation + Plan note Future Appointments Appointment Date:05/04/2021 10:15:00 AM Scheduled Provider:CONRAD SILVERIO JR, MD Location: [facility] Appointment Type:GS OV New Problem Appointment Date:06/01/2021 11:00:00 AM Scheduled Provider:JASON SANABRIA DO Location:[facility] Appointment Type:PC OV Appointment Date:07/19/2021 10:30:00 AM Scheduled Provider:JASON SANABRIA DO Location:[facility] Appointment Type:PC OV Future Scheduled TestsThyroid Stimulating Hormone 03/26/21A1C Hemoglobin 03/26/21Lipid Profile 03/26/21Vitamin D Level 514/Complete Metabolic Panel 21MA Mammo Screening Bilateral w/ Julius 07/21/20 [facility] Evaluation + Plan note Future Appointments Appointment Date:06/01/2021 11:00:00 AM Scheduled Provider:JASON SANABRIA DO Location:[facility] Appointment Type:PC OV Appointment Date:07/19/2021 10:30:00 AM Scheduled Provider:JASON SANABRIA DO Location:[facility] Appointment Type:PC OV Future Scheduled TestsThyroid Stimulating Hormone 11/6/21A1C Hemoglobin 11/6/21Lipid Profile 11/6/21Vitamin D Level 5/14/21Complete Metabolic Panel 11/6/21MA Mammo Screening Bilateral w/ Julius 07/21/20 [facility] Evaluation + Plan note Future Appointments Appointment Date:07/06/2021 10:30:00 AM Scheduled Provider:CONRAD SILVERIO JR, MD Location:[facility] Appointment Type:GS OV Appointment Date:07/19/2021 10:30:00 AM Scheduled Provider:JASON SANABRIA DO Location:[facility] Appointment Type:PC OV Diagnostic Tests PendingMISC Lab Send Out (Non-Blood Specimens) 06/17/21 Future Scheduled TestsThyroid Stimulating Hormone 11/6/21A1C Hemoglobin 11/6/21Lipid Profile 11/6/21Vitamin D Level 5/14/21Complete Metabolic Panel 11/6/21MA Mammo Screening Bilateral w/ Julius 07/21/20 [facility] Evaluation + Plan note Future Appointments Appointment Date:07/06/2021 10:30:00 AM Scheduled Provider:CONRAD SILVERIO JR, MD Location:[facility] Appointment Type:GS OV Appointment Date:07/19/2021 10:30:00 AM Scheduled Provider:JASON SANABRIA DO Location:[facility] Appointment Type:PC OV Future Scheduled TestsThyroid Stimulating Hormone 11621A1C Hemoglobin 11/6/21Lipid Profile 11/6/21Vitamin D Level 5/14/21Complete Metabolic Panel 11/6/21MA Mammo Screening Bilateral w/ Julius 07/21/20 [facility] Evaluation + Plan note Future Appointments Appointment Date:07/19/2021 10:30:00 AM Scheduled Provider:JASON SANABRIA DO Location:[facility] Appointment Type:PC OV Appointment Date:07/19/2021 11:15:00 AM Scheduled Provider:TOMAS SURESH MD Location: [facility] Appointment Type: OV Annual Exam Future Scheduled TestsThyroid Stimulating Hormone 03/26/21A1C Hemoglobin 03/26/21Lipid Profile 03/26/21Vitamin D Level 10/01/20Complete Metabolic Panel 03/26/21MA Mammo Screening Bilateral w/ Julius 07/21/20 [facility] Evaluation + Plan note Future Appointments Appointment Date:2021 11:00:00 AM Scheduled Provider:JASON SANABRIA DO Location:[facility] Appointment Type:PC OV Follow Up Future Scheduled TestsThyroid Stimulating Hormone 03/26/21A1C Hemoglobin 03/26/21Lipid Profile 03/26/21Vitamin D Level 10/01/20Complete Metabolic Panel 03/26/21MA Mammo Screening Bilateral w/ Julius 07/29/21 [facility] Evaluation + Plan note Future Appointments Appointment Date:2021 11:00:00 AM Scheduled Provider:JASON SANABRIA DO Location:[facility] Appointment Type: OV Follow Up Future Scheduled TestsThyroid Stimulating Hormone 03/26/21A1C Hemoglobin 03/26/21Lipid Profile 03/26/21Vitamin D Level 10/01/20Complete Metabolic Panel 03/26/21MA Mammo Screening Bilateral w/ Julius 07/29/21 [facility] Evaluation + Plan note Future Appointments Appointment Date:12/20/2021 09:30:00 AM Scheduled Provider:JASON SANABRIA DO Location:[facility] Appointment Type:PC Wellness Annual Appointment Date:01/26/2022 09:30:00 AM Scheduled Provider:JASON SANBARIA DO Location:[facility] Appointment Type:PC OV Future Scheduled TestsThyroid Stimulating Hormone 03/26/21A1C Hemoglobin 03/26/21Lipid Profile 03/26/21Complete Metabolic Panel 03/26/21MA Mammo Screening Bilateral w/ Julius 07/29/21 [facility] Evaluation + Plan note Future Appointments Appointment Date:01/26/2022 09:30:00 AM Scheduled Provider:JASON SANABRIA DO Location:[facility] Appointment Type:PC OV Future Scheduled TestsThyroid Stimulating Hormone 03/26/21A1C Hemoglobin 03/26/21Lipid Profile 03/26/21Complete Metabolic Panel 03/26/21MA Mammo Screening Bilateral w/ Julius 07/29/21 [facility] Evaluation + Plan note Future Appointments Appointment Date:04/27/2022 09:30:00 AM Scheduled Provider:JASON SANABRIA DO Location:[facility] Appointment Type:PC OV Future Scheduled TestsThyroid Stimulating Hormone 03/26/21A1C Hemoglobin 03/26/21Lipid Profile 03/26/21Complete Metabolic Panel 03/26/21MA Mammo Screening Bilateral w/ Julius 07/29/21 [facility] Evaluation + Plan note Future Appointments Appointment Date:10/27/2022 09:30:00 AM Scheduled Provider:JASON SANABRIA DO Location:[facility] Appointment Type:PC OV Future Scheduled TestsMA Mammo Screening Bilateral w/ Julius 07/26/22 [facility] [facility] Future Appointments Appointment Date:10/27/2022 09:30:00 AM Scheduled Provider:JASON SANABRIA DO Location:[facility] Appointment Type:PC OV [facility] Evaluation + Plan note Future Appointments Appointment Date:01/26/2023 08:30:00 AM Scheduled Provider:JASON SANABRIA DO Location:[facility] Appointment Type:PC OV Appointment Date:01/26/2023 09:30:00 AM Scheduled Provider: Location:[facility] Appointment Type:NUT Diet Visit Individual Appointment Date:01/26/2023 10:30:00 AM Scheduled Provider: Location:[facility] Appointment Type:DB Diabetic Individual Visit (AOH) Future Scheduled TestsBD Bone Density DEXA Axial Skeleton 10/24/22 [facility] Evaluation + Plan note Future Appointments Appointment Date:02/23/2023 09:00:00 AM Scheduled Provider: Location:[facility] Appointment Type:NUT Diet Visit Individual Appointment Date:02/23/2023 10:00:00 AM Scheduled Provider: Location:[facility] Appointment Type:DB Diabetic Individual Visit (AOH) Appointment Date:05/02/2023 08:00:00 AM Scheduled Provider:JASON SANABRIA DO Location:[facility] Appointment Type:PC OV Future Scheduled TestsCT Low Dose Lung Cancer Screening (LDCT) 01/26/23BD Bone Density DEXA Axial Skeleton 10/24/22 [facility] Evaluation + Plan note Future Appointments Appointment Date:02/23/2023 09:00:00 AM Scheduled Provider: Location:[facility] Appointment Type:NUT Diet Visit Individual Appointment Date:02/23/2023 10:00:00 AM Scheduled Provider: Location:[facility] Appointment Type:DB Diabetic Individual Visit (AOH) Appointment Date:05/02/2023 08:00:00 AM Scheduled Provider:JASON SANABRIA DO Location:[facility] Appointment Type:PC OV Future Scheduled TestsBD Bone Density DEXA Axial Skeleton 10/24/22 [facility] Evaluation + Plan note Future Appointments Appointment Date:07/05/2023 01:00:00 PM Scheduled Provider:JASON SANABRIA DO Location:[facility] Appointment Type:PC OV Pre Op Appointment Date:08/02/2023 09:00:00 AM Scheduled Provider:JASON SANABRIA DO Location:[facility] Appointment Type:PC OV Future Scheduled TestsBD Bone Density DEXA Axial Skeleton 10/24/22 [facility] Hospital course Narrative No data available for this section [facility] Hospital Discharge instructions No data available for this section [facility] Progress note No data available for this section [facility] Summary note ZAFAR Wiseman: PERFORM Event Display: Patient Summary Documents Authored Date: [id number] [facility] Summary Purpose Family History No Family History Records Found Advance Directives No Advanced Directives Records Found Additional Source Comments Care Team (unrecognized sect ion and content) Personnel Name: JASON SANABRIA DO Address: [address] [place] [address] Care Team Personnel Name: TOMAS SURESH MD Position: P4 ST[employer] M[employer]ER Provider Member Role: OBGYN Address: Address: [address] [place] [address] Name: JASON SANABRIA DO Position: P4 Physician - Primary Care Member Role: Primary Care Physician Address: Address: [address] [place] [address] Care Team Related Persons Name: RONAL SLATER Name: RONAL SLATER Name: RONAL SLATER Name: RONAL SLATER Address: Home [address] [place] [phone] [place] Name: RONAL SLATER Name: RONAL SLATER Name: MICHELLE SLATER Address: [address] [phone] Name: LUTHER WEI Address: [address] [phone] [place] Care Team Personnel Name: TOMAS SURESH MD Position: P4 STOCKFEED MILLER Provider Member Role: OBGYN Address: Address: [address] [place] [address] Name: JASON SANABRIA DO Position: P4 Physician - Primary Care Member Role: Primary Care Physician Address: Address: [address] [place] [address] Care Team Related Persons Name: RONAL SLATER Name: RONAL SLATER Name: RONAL SLATER Address: Home [address] [place] [phone] [place] Name: RONAL SLATER Name: RONAL SLATER Name: RONAL SLATER Name: MICHELLE SLATER Address: [address] [phone] Name: LUTHER WEI Address: [address] [phone] [place] Care Team Personnel Name: TOMAS SURESH MD Position: P4 STOCKFEED MILLER Provider Member Role: OBGYN Address: Address: [address] [place] [phone] [place] [address] Name: JASON SANABRIA DO Position: P4 Physician - Primary Care Member Role: Primary Care Physician Address: Address: [address] [place] [phone] [place] [address] Care Team Related Persons Name: RONAL SLATER Name: RONAL SLATER L Name: RONAL SLATER L Name: LAURA SLATERIN L Name: LAURA SLATERIN L Name: RONAL SLATER Address: [address] [phone] [place] Name: MICHELLE SLATER Address: [address] [phone] Name: LUTHER WEI Address: [address] [phone] [place] Care Team Personnel Name: TOMAS SURESH MD Position: P4 STOCKFEED MILLER Provider Member Role: OBGYN Address: Address: [address] [place] [phone] [place] [address] Name: JASON SANABRIA DO Position: P4 Physician - Primary Care Member Role: Primary Care Physician Address: Address: [address] [place] [phone] [place] [address] Care Team Related Persons Name: LAURA SLATERIN L Name: LAURA SLATERIN L Name: LAURA SLATERIN L Address: [address] [phone] [place] Name: LAURA SLATERIN L Name: NOHEMY RONAL L Name: LAURA SLATERIN L Name: MICHELLE SLATER Address: [address] [phone] Name: LUTHER WEI Address: [address] [phone] [place] Care Team Personnel Name: TOMAS SURESH MD Position: P4 STOCKFEED MILLER Provider Member Role: OBGYN Address: Address: [address] [place] [address] Name: JASON SANABRIA DO Position: P4 Physician - Primary Care Member Role: Primary Care Physician Address: Address: [address] [place] [address]- Name: VIRGILIO DONIS MD Position: P3 Physician - Urologist Member Role: Urologist Address: Address: [address] [facility] Virg[place], [place] [address] Care Team Related Persons Name: RONAL SLATER Name: RONAL SLATER Name: LAURA SLATERIN L Name: NOHEMY RONAL L Name: LAURA SLATERIN L Name: LAURA SLATERIN Britney Address: Home [address] [place] [phone] [place] Name: MICHELLE SLATER Address: [address] [place], [place] [phone] Name: LUTHER WEI Address: [address] [place], [place] [phone] [place] Care Team (unrecognized sect ion and content) Care Team Personnel Name: TOMAS SURESH MD Position: P4 STOCKFEED MILLER Provider Med Service: Active Provider Member Role: OBGYN Address: Address: [address] [place] [id number]- Name: JASON SANABRIA DO Position: P4 Physician - Primary Care Med Service: Active Provider Member Role: Primary Care Physician Address: Address: [address] [place] [id number] Care Team Related Persons Name: SLATERLAURAIN L Name: SLATER RONAL L Name: SLATER RONAL L Name: SLATER RONAL L Name: SLATER RONAL L Address: Home [address] [place], [place] [phone] [place] Name: RONAL SLATER Name: MICHELLE SLATER Address: Home [address] [place] [phone] Name: LUTHER WEI Address: Home [address] [place] [phone] [place] Care Team Personnel Name: TOMAS SURESH MD Position: P4 STOCKFEED MILLER Provider Med Service: Active Provider Member Role: OBGYN Address: Address: [address] [place] [id number]- Name: JASON SANABRIA DO Position: P4 Physician - Primary Care Med Service: Active Provider Member Role: Primary Care Physician Address: Address: [address] [place] [address]- Care Team Related Persons Name: RONAL SLATER Name: RONAL SLATER Name: RONAL SLATER Name: RONAL SLATER Name: RONAL SLATER Address: Home [address] [place] [phone] [place] Name: RONAL SLATER Name: MICHELLE SLATER Address: Home [address] [facility] [facility] [facility] [place] [phone] Name: ERIBERTO, LUTHER Address: Home [address] [place] [phone] [place] Care Team Personnel Name: TOMAS SURESH MD Position: P4 STOCKFEED MILLER Provider Address: Address: [address] [place] [phone]- Name: JASON SANABRIA DO Position: P4 Physician - Primary Care Member Role: Primary Care Physician Address: Address: [address] [place] [address]- Care Team Related Persons Name: RONAL SLATER L Name: RONAL SLATER L Name: RONAL SLATER L Address: Home [address] [place] [phone] [place] Name: RONAL SLATER L Name: LAURA SLATERIN L Name: RONAL SLATER L Name: MICHELLE SLATER M Address: Home [address] [place], [place] [phone] Name: ERIBERTO, LUTHER Address: Home [address] [place] [phone] [place] Care Team Personnel Name: TOMAS SURESH MD Position: P4 STOCKFEED MILLER Provider Med Service: Active Provider Member Role: OBGYN Address: Address: [address] [place] [id number] Name: JASON SANABRIA DO Position: P4 Physician - Primary Care Med Service: Active Provider Member Role: Primary Care Physician Address: Address: [address] [place] [id number] Care Team Related Persons Name: RONAL SLATER Name: RONAL SLATER Name: RONAL SLATER Name: LAURA SLATERIN L Name: LAURA SLATERIN L Name: LAURA SLATERIN L Address: Home [address] [place] [phone] [place] Name: MICHELLE SLATER Address: Home [address] [place] [address] [place] [phone] Name: LUTHER WEI Address: [address] [phone] [place] Care Team Personnel Name: TOMAS SURESH MD Position: P4 STOCKFEED MILLER Provider Med Service: Active Provider Member Role: OBGYN Address: Address: [address] [place] [id number] Name: JASON SANABRIA DO Position: P4 Physician - Primary Care Med Service: Active Provider Member Role: Primary Care Physician Address: Address: [address] [place] [phone] [place] [address] Care Team Related Persons Name: RONAL SLATER L Name: RONAL SLATER L Address: Home [address] [place] [phone] [place] Name: LAURA SLATERIN L Name: LAURA SLATERIN L Name: LAURA SLATERIN L Name: LAURA SLATERIN L Name: MICHELLE SLATER Address: Home [address] [place] [phone] Name: LUTHER WEI Address: Home [address] [place] [phone] [place] Care Team Personnel Name: TOMAS SURESH MD Position: P4 STOCKFEED MILLER Provider Member Role: OBGYN Address: Address: [address] [place] [id number] Name: JASON SANABRIA DO Position: P4 Physician - Primary Care Member Role: Primary Care Physician Address: Address: [address] [place] [address] Care Team Related Persons Name: RONAL SLATER L Name: LAURA SLATERIN L Name: SLATERLAURAIN L Name: LAURA SLATERIN L Address: [address] [phone] Name: RONAL SLATER L Name: RONAL SLATER L Name: MICHELLE SLATER Address: [address] [phone] Name: LUTHER WEI Address: [address] [phone] Care Team Personnel Name: TOMAS SURESH MD Position: P4 STOCKFEED MILLER Provider Member Role: OBGYN Address: Address: [address] [place] [address] Name: JASON SANABRIA DO Position: P4 Physician - Primary Care Member Role: Primary Care Physician Address: Address: [address] [place] [phone] [place] [address] Care Team Related Persons Name: RONAL SLATER L Name: LAURA SLATERIN L Name: LAURA SLATERIN L Name: LAURA SLATERIN L Name: LAURA SLATERIN L Address: [address] [phone] Name: RONAL SLATER L Name: MICHELLE SLATER Address: [address] [phone] Name: LUTHER WEI Address: [address] [phone] INFORMATION SOURCE (unrecogn ized section and content) FOR RECORDS PERTAINING TO PATIENTS WHO ARE OR HAVE BEEN ENROLLED IN A CHEMICAL DEPENDENCY/SUBSTANCEABUSE PROGRAM, SOME INFORMATION MAY BE OMITTED. This clinical summary was aggregated from multiple sources. Caution should be exercised in using it in the provision of clinical care. This summary normalizes information from multiple sources, and as a consequence, information in this document may materially change the coding, format and clinical context of patient data. In addition, data may be omitted in some cases. CLINICAL DECISIONS SHOULD BE BASED ON THE PRIMARY CLINICAL RECORDS. [facility] [employer] [facility] provides no warranty or guarantee of the accuracy or completeness of information in this document.
[2023-07-12] MEDS: Lactated Ringers 1,000 ML 15 ML IV (08:37)
--- NOTE | 2023-07-12 08:53 | DCINST_ITS ---
Discharge Instructions Diet Discharge Diet: No restrictions Activity Discharge Activity: May Shower Lifting Restrictions: 5 pounds Additional Activity Instructions:: No exercise, strenuous activity, sexual activity, hot tubs, swimming or tub bathing Dressing / Incision Call your doctor if your incision/area has: Continuous Slow Oozing, Sudden Increased Bleeding, Increased Pain/ Swelling, Increased Redness and Foul Smelling Discharge Call your doctor if you observe: Fever of 101 or Higher, Inability to urinate and Inability to have a bowel movement Follow Up Care Please Follow Up With: Cristal Donis MD When: The office will call the patient to make arrangements for follow-up Test Results: Test results from this visit will be discussed in further detail at your follow- up appointment, if applicable. 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 albuterol sulfate 1.25 mg/3 mL Solution For Nebulization 1.25 mg INHALATION PRN PRN (Reason: SOB) sumatriptan succinate [Imitrex] 100 mg Tablet 100 mg PO Q2H PRN (Reason: Headache) Rx Instructions: do not exceed 2 doses per 24 hrs propranolol 60 mg tablet 30 mg PO BID Patient Comments: take 1 tablet by mouth twice a day amitriptyline 50 mg tablet 50 mg PO QHS Patient Comments: take 1 tablet by mouth at bedtime pantoprazole [Protonix] 40 mg Tablet,Delayed Release (Dr/Ec) 40 mg PO DAILY simvastatin 20 mg Tablet 20 mg PO DAILY lisinopril 5 mg Tablet 5 mg PO DAILY omega-3 fatty acids-vitamin E 1,000 mg Capsule 2 cap PO DAILY cholecalciferol (vitamin D3) 1,250 mcg (50,000 unit) capsule 1,250 mcg PO FR Patient Comments: take 1 capsule by mouth every week Jardiance 25 mg Tablet 25 mg PO DAILY Combivent Respimat 20-100 mcg/actuation Mist 1 puff INHALATION PRN PRN (Reason: SOB) Referrals / Follow Up: Teresa Villanueva DO [Primary Care Provider] - Disposition Disposition (needs filled in before D/C Order can be placed): Home, Self Care
--- NOTE | 2023-07-12 08:56 | PCM.OPRPT ---
Report of Operation Date of Procedure: 07/12/23 Pre-Operative Diagnosis: Stress urinary incontinence Post-Operative Diagnosis: Same Surgery/Procedure Performed:: Mid urethral sling insertion (Altis), cystoscopy Surgeon: Cristal Donis Type of Anesthesia: General Specimen's removed: None Estimated Blood Loss (mL): 10 cc Description of Procedure: The patient is a 62-year-old female with a history of stress incontinence who underwent testing in the office. After reviewing her options she has decided to proceed with a mid urethral sling insertion under anesthesia. Informed consent has been obtained. The patient was taken to the operating room and placed on the operating room table. Anesthesia monitored the head, neck, airway, IV access and vital signs throughout the case. Once anesthesia was appropriately administered, the patient was placed into exaggerated dorsal lithotomy and Trendelenburg position. She was prepped and draped in usual sterile fashion and a sterile Mitchell catheter was inserted to straight drain emptying the bladder. The mid urethra was isolated and the submucosa was injected with lidocaine with epinephrine for hydrostatic dissection and hemostatic control. A midline vertical incision approximately 1.5 cm in length was then made. Sharp and blunt dissection were performed on either side of the urethra with care being taken to avoid entry into the urethra or through the vaginal mucosa. Using the provided trocars, the Altis tines were placed into the obturator complexes bilaterally. The sling was then positioned using the tensioning suture. It lay flat against the urethra. The tensioning suture was then cut. The midline incision was closed using running interlocking 2-0 Vicryl. The Mitchell catheter was then removed and the cystoscope was inserted through the urethra under direct visualization into the urinary bladder. There was no evidence of foreign object, hemorrhage, or injury on visualization of the urethral and bladder mucosa. The cystoscope was then removed and the patient was awakened and taken to the recovery room in good condition. There were no complications during this procedure. Grafts/Implants Used: Altis mid urethral sling Complications None Admit VTE Documentation VTE Present on Admission: Yes VTE Mechan Device Prophylaxis: SCD's VTE Pharm Prophylaxis ordered?: No Reason prophylaxis not ordered:: Treatment Not Indicated
[2023-07-12] MEDS: Cefazolin 2 GM in 0.9% Normal Saline (100mL Bag) 100 ML IV (09:15)
[2023-07-12] MEDS: Lidocaine 1% /Epi 1:100 (20ml) 20 ML Vial (09:33)
[2023-07-12 10:21] LABS: Bedside Glucose 144 mg/dL (74-106)
[2023-07-12 10:51] LABS: Bedside Glucose 169 mg/dL (74-106)
== END 2023-07-12 12:28 | disposition home or self-care (01) ==
LOC: SDC 08:07 → AC 08:08
PROVIDERS: PCP Family Medicine; Referring Provider Urology; Visit Provider Urology
PROC: 0TJB8ZZ Inspection of Bladder, Via Natural or Artificial Opening Endoscopic (ICD-10-PCS; CPT 57288; principal; 2023-07-12 09:30)
DX: N39.3 Stress incontinence (female) (male) (principal); J44.9 Chronic obstructive pulmonary disease, unspecified; E11.9 Type 2 diabetes mellitus without complications; R35.1 Nocturia; N32.81 Overactive bladder; R82.71 Bacteriuria; F17.200 Nicotine dependence, unspecified, uncomplicated; Z79.84 Long term (current) use of oral hypoglycemic drugs; Z79.899 Other long term (current) drug therapy
CPT/HCPCS: 57288; 00860; 36415; 80048; 82962; 85027; J7120; J2405

== ENCOUNTER → 2023-11-13 | Outpatient (CLI) | payer OTHER, SELFPAY ==
--- NOTE | 2023-11-13 08:36 | BI_ITS ---
MAMMOGRAPHY - BILATERAL SCREENING REASON FOR EXAM: Female, 63 years old. Routine annual screening examination. PERTINENT HISTORY: Mother with breast cancer. Remote left stereotactic breast biopsy. TECHNIQUE: Digital bilateral breast harper (3D mammographic acquisition) in the CC and MLO projections. 2-D mediolateral oblique (MLO) and craniocaudad (CC) views of both breasts were obtained. CAD: Full Field Digital Mammography with Computer Added Detection was performed. COMPARISON: Comparison is made with prior study dated August 02, 2022 and July 28, 2020. FINDINGS: Breast Composition: The breasts are almost entirely fatty. There are no dominant masses or suspicious calcifications. No other significant abnormalities are identified. There has been no significant change since the prior study. BI/SCRN MAMM (CAD)W/HARPER BILAT IMPRESSION: Stable bilateral screening mammogram. Yearly follow-up mammogram recommended. (A) ASSESSMENT CATEGORY: BIRADS Category 1: Negative. A letter regarding these results will be sent to the patient by the facility within 30 days. Approximately 10% of breast cancers are not detected by mammography. A normal mammogram should not delay biopsy of a clinically suspicious abnormality. [id number] Electronically Signed: Robson Mullen MD at 9:39 EDT ,
== END | disposition home or self-care (01) ==
LOC: OPBI 08:35
PROVIDERS: PCP Family Medicine; Referring Provider Obstetrics & Gynecology Gynecology; Visit Provider Obstetrics & Gynecology Gynecology
DX: Z01.419 Encounter for gynecological examination (general) (routine) without abnormal findings (principal); Z12.31 Encounter for screening mammogram for malignant neoplasm of breast; Z13.820 Encounter for screening for osteoporosis; D75.1 Secondary polycythemia
CPT/HCPCS: 77063; 77067

== ENCOUNTER → 2023-11-29 | Outpatient (CLI) | payer OTHER, SELFPAY ==
--- NOTE | 2023-11-29 13:15 | BD_ITS ---
STUDY: DUAL ENERGY X-RAY ABSORPTIOMETRY / DXA REASON FOR EXAM: Female, 63 years old. 733.00OsteoporosisBONE DENSITY REASON FOR EXAM TECHNIQUE: Bone Mineral Density (BMD) measurements of lumbar spine and bilateral hips were obtained. COMPARISON: None. FINDINGS: Lumbar Spine (L1-L4): g/cm2 (1.167) / T-score (1.1) / Z-score (2.6) Findings are suggestive of normal bone density with a low fracture risk. Left Femur Total: g/cm2 (1.045) / T-score (0.8) / Z-score (1.9) Left Femoral Neck: g/cm2 (0.831) / T-score (-0.2) / Z-score (1.2) Right Femur Total: g/cm2 (1.005) / T-score (0.5) / Z-score (1.6) Right Femoral Neck: g/cm2 (0.796) / T-score (-0.5) / Z-score (0.9) BD/Dexa Bone Density Study IMPRESSION: The patient is considered normal as outlined below according to World Vladislav Organization (WHO) criteria with a low fracture risk. Reference Information: The T-score is the number of standard deviations above or below the standard which is normal for young adults at their peak bone mineral density. The World Health Organization (WHO) interprets the T-scores as follows: Above -1 Normal bone density Between -1 and -2.5 Osteopenia Equal to / or below -2.5 Osteoporosis As a practical clinical guideline, osteopenia may be graded as follows: Mild -1 through -1.5 Moderate -1.6 through -2.0 Severe -2.1 through -2.4 The Z-score is the number of standard deviations above or below age-matched controls. A Z-score of less than -1.5 would be considered abnormal. References: 1. NIH Osteoporosis and Related Bone Diseases www osteo.org 2. International Society for Clinical Densitometry www iscd.org 3. National Osteoporosis Foundation www nof.org Electronically Signed: Robson Mullen MD at 8:14 EDT ,
== END | disposition home or self-care (01) ==
LOC: OPBD 13:13
PROVIDERS: PCP Family Medicine; Referring Provider Obstetrics & Gynecology Gynecology; Visit Provider Obstetrics & Gynecology Gynecology
DX: Z01.419 Encounter for gynecological examination (general) (routine) without abnormal findings (principal); Z12.39 Encounter for other screening for malignant neoplasm of breast; Z13.820 Encounter for screening for osteoporosis; D75.1 Secondary polycythemia
CPT/HCPCS: 77080

== ENCOUNTER → 2024-11-18 | Outpatient (CLI) | payer OTHER, SELFPAY ==
--- NOTE | 2024-11-18 07:35 | BI_ITS ---
EXAM: SCRN MAMM (CAD)W/HARPER BILAT DATE: 11/18/2024 CLINICAL HISTORY: F, Age 64 y/o , SCREENING TECHNIQUE: SCRN MAMM (CAD)W/HARPER BILAT COMPARISON: Prior exam(s) dated 11/13/2023, 08/02/2022, 07/28/2020. FINDINGS: TISSUE DENSITY: The breasts are almost entirely fatty. Bilateral Breast Mammographic Findings: No significant masses, calcifications or other abnormalities are identified. BI/SCRN MAMM (CAD)W/HARPER BILAT IMPRESSION: There is no mammographic evidence of malignancy. OVERALL FINAL ASSESSMENT BI-RADS 1: NEGATIVE. RECOMMEND ANNUAL MAMMOGRAPHIC SCREENING. RECOMMENDATION: Routine annual follow-up in 1 Year A letter with findings and recommendations will be mailed to the patient. Reading Location: [id number]
== END | disposition home or self-care (01) ==
PROVIDERS: PCP Family Medicine; Referring Provider Family Medicine; Visit Provider Family Medicine
DX: Z12.31 Encounter for screening mammogram for malignant neoplasm of breast (principal)
CPT/HCPCS: 77063; 77067